=== PATIENT | female | born 1955 | race Caucasian/White ===

== ENCOUNTER 2017-06-12 20:00 | Emergency (ER) | payer MEDICARE ==
[2017-06-12] MEDS ORDERED: Lidocaine 1% MPF* 2 ML VIAL INJ ONE (20:04)
[2017-06-12] MEDS ORDERED: Acetaminophen TAB* 325 MG PO ONE (20:54)
[2017-06-12] MEDS ORDERED: Cephalexin CAP* 250 MG PO ONE (20:54)
[2017-06-12 21:00] VITALS: BP 168/92
--- NOTE | 2017-06-12 21:22 | UC ---
Kirby Vizcarra Nikita, scribed for Delma Anderson MD on 06/12/17 at 2009 . Laceration HPI - HPI Summary HPI Summary: This patient is a 61 year old F presenting to [facility] with a chief complaint of L index finger laceration with a kitchen knife since 1930. The CC is described as burning and oozing. The cut was clean and the knife was smooth. The patient rates the pain 8/10 in severity. No analgesia taken. 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 not immunocompromised Pt RHD Patients medication reviewed this visit. - History Of Current Complaint Stated Complaint: FINGER LACERATION Time Seen by Provider: 06/12/17 20:03 Hx Obtained From: Patient Laceration Location: Finger - L index Mechanism Of Injury: Sharp Trauma - kitchen knife Onset/Duration: Sudden Onset, Lasting Hours, Still Present Severity: Moderate Pain Intensity: 8 Pain Scale Used: 0-10 Numeric Aggravating Factors: Nothing - Allergies/Home Medications Allergies/Adverse Reactions: Allergies Allergy/AdvReac Type Severity Reaction Status Date / Time No Known Allergies Allergy Verified 06/12/17 20:13 PMH/Surg Hx/FS Hx/Imm Hx - Additional Past Medical History Additional PMH: osteoporosis Previously Healthy: Yes Cardiovascular History: Hypertension GI/ History: Gastroesophageal Reflux Cancer History: Other - Uterine CA (2014) Other Cancer History: uterine CA - Surgical History Surgical History: Yes Surgery Procedure, Year, and Place: TMJ, Hysterectomy, cataract right eye - Family History Known Family History: Positive: Hypertension, Other - liver cancer Negative: Diabetes - Social History Occupation: Retired Lives: With Family Alcohol Use: Rare Substance Use Type: None Smoking Status (MU): Never Smoked Tobacco - Immunization History Most Recent Influenza Vaccination: 2014 Most Recent Tetanus Shot: 4 years ago Most Recent Pneumonia Vaccination: never Review of Systems Constitutional: Negative Skin: Other - L index finger laceration All Other Systems Reviewed And Are Negative: Yes Physical Exam Triage Information Reviewed: Yes Appearance: Well-Appearing, No Pain Distress, Well-Nourished Vital Signs: Initial Vital Signs Temp 98.6 F 06/12/17 20:06 Pulse 70 06/12/17 20:06 Resp 18 06/12/17 20:06 BP 168/92 06/12/17 20:06 Pulse Ox 100 06/12/17 20:06 Vital Signs Reviewed: Yes Eyes: Negative: Discharge ENT: Positive: Hearing grossly normal Neck: Positive: Supple Respiratory: Positive: No respiratory distress, No accessory muscle use Cardiovascular: Positive: Other: - CBT < 2 sec del left index Musculoskeletal: Positive: Other: - + flex/ext DIP, PIP, MCP against resistance without difficulty Psychological Exam: Normal Skin: Positive: Other - Pt with V shaped laceration left index, dorsm, between MCP and PIP apex distal apex flap proximal Laceration Repair - Laceration Repair 1 Description: Linear - Time out performed at bed side Pt anethetized and draped in sterile fashion Wound evaluated through full ROM - no joint entry, no tendon/ ligament injury identified Pt tolerated well V shaped Laceration Size After Repair: Length (cm) - 2cm Modified For Repair: No Type Injection: Local Anesthesia Used: 1.0% Lido - 2 mL used Cleansing Completed Via Routine Prep: Yes Irrigation With Pressure Irrigation Device: Yes Closure Material: Sutures Closure Method: Single Layer - irrigated copiously with 250ml sterile saline Suture Of: Skin Suture Type: Nylon - 4.0 Laceration Course/Dx - Course/Dx Course Of Treatment: Pt with laceration of left index, non dominant hand - no joint involvement. CSM intact and full. sutured with good approx. pt tolerated well. splint. wound care. s/s infection. keflex. return precaution. suture removal. Pt tolerated well. comfortable with plan of care - Differential Dx - Laceration/Wound Provider Diagnoses: index laceration, left suture repair Discharge - Discharge Plan Condition: Stable Disposition: HOME Prescriptions: Cephalexin CAP* [Keflex 250 CAP*] 250 mg PO TID #21 cap Patient Education Materials: Finger Laceration (ED) Referrals: Xavier Fisher MD [Primary Care Provider] - Additional Instructions: - your stitches should come out in 9-10 days - you can return here, go to your Doctor or any urgent care center - okay to alternate ibuprofin (advil, motrin) and tylenol every 3hours as needed for pain -Keep your wound clean and dry - no soaking for 24 hours. Then, okay for wound to get wet - pat dry, don't rub -apply a thin layer of antibiotic ointment (neosporin, polysporin) 2-3 times a day and cover with a bandage - wear splint as much as possible for the first 1-2 days. - - keep your wound clean - monitor for signs of infection - reddness, red streaking, odor, green drainage - Take antibiotics as prescribed - Contact your doctor or return here with questions or concerns The documentation as recorded by the Kirby arredondo Nikita accurately reflects the service I personally performed and the decisions made by me, Delma Anderson MD.
== END 2017-06-12 21:10 | disposition home or self-care (01) ==
LOC: UCEAST 20:00
DX: S61.211A Laceration without foreign body of left index finger without damage to nail, initial encounter (principal); W26.0XXA Contact with knife, initial encounter; Y93.9 Activity, unspecified; Y92.9 Unspecified place or not applicable; I10 Essential (primary) hypertension; K21.9 Gastro-esophageal reflux disease without esophagitis; Z85.42 Personal history of malignant neoplasm of other parts of uterus
CPT/HCPCS: 12001; 99212; G0463

== ENCOUNTER 2017-07-30 18:33 | Emergency (ER) | payer MEDICARE ==
--- NOTE | 2017-07-30 21:32 | UC ---
Skin Complaint HPI - HPI Summary HPI Summary: PT REPORTS H/O VERY DRY SKIN IN THE [place] WHICH RESULTS IN DIFFUSE ITCHING FROM THE TOP OF HER HEAD TO HER TOES. PT HAS EXCORIATIONS DIFFUSELY. NO FEVER. HAS SEEN PCP AND DERM AND REPORTS UNDERLYING CONDITIONS HAVE BEEN EXCLUDED. WAS ADVISED BY DERM TO AVOID HOT SHOWERS, USE ICE PACKS AND MOISTURIZE WITH GOLD PARTIDA. SHE REPORTS PERSISTENT SYMPTOMS AND DISCOMFORT. IS TAKING BENADRYL WITH NO RELIEF. - History of Current Complaint Chief Complaint: UCSkin Time Seen by Provider: 07/30/17 20:43 Stated Complaint: ITCHINESS Hx Obtained From: Patient, Family/Sloop Captain - Onset/Duration: Lasting Weeks, Still Present Timing: Constant Onset Severity: Moderate Current Severity: Moderate Pain Intensity: 5 Pain Scale Used: 0-10 Numeric Location: Diffuse Character: Pruritus Aggravating Factor(s): Nothing Alleviating Factor(s): Nothing Associated Signs & Symptoms: Positive: Negative - Allergy/Home Medications Allergies/Adverse Reactions: Allergies Allergy/AdvReac Type Severity Reaction Status Date / Time No Known Allergies Allergy Verified 07/30/17 18:56 Review of Systems Constitutional: Negative Skin: Other - PRURITUS AND EXCORIATIONS Respiratory: Negative Cardiovascular: Negative Gastrointestinal: Negative All Other Systems Reviewed And Are Negative: Yes PMH/Surg Hx/FS Hx/Imm Hx Previously Healthy: Yes - Surgical History Surgical History: Yes Surgery Procedure, Year, and Place: TMJ, Hysterectomy, cataract right eye - Family History Known Family History: Positive: Hypertension, Other - liver cancer Negative: Diabetes - Social History Alcohol Use: Rare Substance Use Type: None Smoking Status (MU): Never Smoked Tobacco - Immunization History Most Recent Influenza Vaccination: 2014 Most Recent Tetanus Shot: 4 years ago Most Recent Pneumonia Vaccination: never Physical Exam Triage Information Reviewed: Yes Appearance: Well-Appearing, No Pain Distress, Well-Nourished Vital Signs: Initial Vital Signs Temp 98.6 F 07/30/17 18:50 Pulse 104 07/30/17 18:50 Resp 17 07/30/17 18:50 BP 155/100 07/30/17 18:50 Pulse Ox 100 07/30/17 18:50 Vital Signs Reviewed: Yes Eyes: Positive: Conjunctiva Clear ENT: Positive: Pharynx normal Neck: Positive: Supple Respiratory: Positive: No respiratory distress, No accessory muscle use Cardiovascular: Positive: Pulses Normal Abdomen Description: Positive: Soft Musculoskeletal: Positive: No Edema Neurological: Positive: Alert Psychological: Positive: Age Appropriate Behavior Skin: Positive: Other - EXCORIATED SKIN DIFFUSELY - SCALP, TRUNK, EXTREMITIES Course/Dx - Diagnoses Provider Diagnoses: GENERALIZED PRURITUS DUE TO DRY SKIN Discharge - Discharge Plan Condition: Stable Disposition: HOME Prescriptions: predniSONE TAB* [Deltasone TAB*] 50 mg PO DAILY #5 tab Triamcinolone 0.1% CREAM(NF) [Kenalog Cream 0.1%(NF)] 1 applic TOPICAL TID PRN # 1 tube PRN Reason: Itching Patient Education Materials: Itchy Skin (ED) Referrals: Xavier Fisher MD [Primary Care Provider] - If Needed Additional Instructions: CONTINUE MOISTURIZING DAILY WITH FRAGRANCE FREE, HYPOALLERGENIC EMOLLIENT AVOID HEAT AND HOT WATER DO NOT SCRATCH KEEP COOL, CLEAN AND DRY PREDNISONE AND TOPICAL STEROID MAY PROVIDE SOME RELIEF. CONSIDER A HUMIDIFIER IN YOUR ROOM.
[2017-07-30 21:37] VITALS: BP 146/88
== END 2017-07-30 21:29 | disposition home or self-care (01) ==
LOC: UCEAST 18:33
DX: L29.9 Pruritus, unspecified (principal); L85.3 Xerosis cutis
CPT/HCPCS: 99211; G0463

== ENCOUNTER 2018-12-11 14:30 | Emergency (ER) | payer MEDICARE ==
--- OUTSIDE RECORDS SUMMARY | 2018-12-11 14:43 | XMS REPORT | Continuity of Care Document ---
:1955 External Reference #:[id number] Author Name Johnmiky Trena Care Team Providers Name Role Phone Kendra Almanzar M.D. Primary Care Physician Unavailable Payers Date Identification Numbers Payment Provider Subscriber Policy Number: [id number] Medicare Blue Ppo Gila Dots[employer] Group Number: [id number] [address] [address] PayID: [id number] JULIO [place] [address] Expires: 2000 Policy Number: [id number] Medicare Gila Dotson PayID: [id number] [address] [place] [address] Advance Directives Type Date Description Status Comment Other Directive 02/27/2017 Health Care Proxy Current and Verified Problems Active Problems Provider Date Essential hypertension Scott Perez M.D. Onset: 08/26/2015 Atypical depressive disorder Xavier Fisher M.D. Onset: 03/10/2016 Gastroesophageal reflux disease Xavier Fisher M.D. Onset: 03/10/2016 Neck pain Xavier Fisher M.D. Onset: 09/26/2016 Mixed hyperlipidemia Xavier Fisher M.D. Onset: 02/14/2017 Chronic pain Ferny Reinoso M.D.,FACP Onset: 12/05/2017 Brachial neuritis Rogelio Lacey M.D. Onset: 03/28/2018 Sprain of ankle Ad Beltran MD Onset: 04/17/2018 Resolved Problems Headache Scott Perez M.D. Onset: 08/12/2015 Resolved: 05/29/2017 Hyperlipidemia Scott Perez M.D. Onset: 08/26/2015 Resolved: 05/29/2017 Tension-type headache Xavier Fisher M.D. Onset: 03/10/2016 Resolved: 05/29/2017 Low back pain Xavier Fisher M.D. 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 ETOH Use Occasionally consumes alcohol Tobacco Use Start: Unknown Patient has never smoked Recreational Drug Use Denies Drug Use Smoking Status Reviewed: 12/10/18 Patient has never smoked Exercise Type/Frequency Jogs 3 times a week Allergies, Adverse Reactions, Alerts Description No Known Drug Allergies Medications Active Medications SIG Qnty Indications Ordering Provider Date Amlodipine Besylate 1 by mouth every 30tabs I10 Rosalinda Albert, 10/24/2018 day [employer] 5mg Tablets Oxycodone-Acetaminop take one tablet 60tabs M54.5 Margarita Nguyen MD 2017 hen by mouth every 5-325mg Tablets 12 hours as needed for pain Venlafaxine HCL ER 3 caps PO daily 30caps F33.0 Xavier Fisher, 2017 for total of 225 M.D. 75mg Caps ER 24HR mg Lidocaine apply to painful 35.440gm M54.2 Missy Triplett, 10/31/2016 5% Ointment areas 3 times a M.D. day as needed. Metoprolol Succinate take 1 tablet by 30tabs I10 Xavier Fisher, 2016 ER mouth every day M.D. 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 06/06/2018 Tablets as needed Amlodipine Besylate 1 by mouth 30tabs I10 Xavier Fisher, 01/12/2017 - every day M.D. 05/29/2017 5mg Tablets Percocet 1 tab every 8h 90tabs M54.2 Xavier Yolanda, 11/08/2016 - 5-325mg as needed M.D. 02/19/2018 Tablets Tizanidine HCL 1 by mouth at 30caps M54.2 Xavier Fisher, 11/03/2016 - 4mg bedtime M.D. 12/20/2016 Capsules Percocet 1 tab every 8h 90tabs M54.2 Ceibamarleny Fisher, 10/31/2016 - 5-325mg as needed M.D. 11/01/2016 Tablets Naproxen Take 1 Tablet 60tabs M54.2 Xaviermarleny Fisher, 10/31/2016 - 375mg By Mouth Two M.D. 10/24/2018 Tablets Times Daily With Food prn Oxycodone HCL 1 by mouth 30tabs M54.5 Xavier Fisher, 09/26/2016 - 5mg every 12 hours M.D. 10/31/2016 Tablets as needed 30 day supply Naltrexone HCL 1 po qd 30tabs Padma Ortiz 09/23/2016 - 50mg SHANNON Allred 11/03/2016 Tablets Lidocaine apply patch up 30units M54.2 Xaviermarleny Fisher, 09/14/2016 - 5% to 12 hours M.D. 10/31/2016 Patches once a day. Meloxicam 1 tab by mouth 45tabs M54.2 Wade Sanders NP 09/14/2016 - 7.5mg every 12 hours 10/31/2016 Tablets x14 days, then as needed for pain Robaxin 1 tab po every 45tabs M54.2 Wade Sanders NP 09/14/2016 - 500mg 6 hours prn up 09/28/2016 Tablets to tid Ibuprofen 1 tab by mouth 90tabs G89.29 Brennon Steiner, 09/06/2016 - 600mg three times a M.D. 09/14/2016 Tablets day M54.2 Acetaminophen Extra 2 tabs 3 times 120tabs G89.29 Brennon Steiner, 2016 - Strength daily as needed M.D. 09/14/2016 500mg Tablets for pain Lidocaine apply to back 90units G89.29 Brennon Steiner, 09/06/2016 - 5% Patches once daily. M.D. 09/14/2016 remove after 12 hours Lidocaine apply patch up 30units Brennon Steiner, 09/06/2016 - 5% Patches to 12 hours once M.D. 09/06/2016 a day. Aspirin Adult Low Dose 1 by mouth every 30tabs I10 Other Ordering 2015 - day Provider 10/27/2018 81mg Tablets Venlafaxine HCL ER 1 tab PO daily 30Regina Lux 03/02/2016 - 150mg MD Arabella 01/12/2017 Caps ER 24HR Oxycodone-Acetaminophe take 1 to 2 60tabs Brennon Steiner, 03/02/2016 - n tablets by mouth M.D. 09/06/2016 5-325mg Tablets every 6 to 8 hours as needed pain Fioricet Take 1 Capsule 30caps G44.201 Wade Sanders, 12/09/2015 - 50-300-40mg By Mouth Every 4 [employer] 09/06/2016 Capsules Hours as Needed For Headaches Maximum Daily Dose Of 6 Per Day 2 Days Per Week Celexa 1 tablet by 30tabs F32.8 Scott Perez, 10/13/2015 - 20mg Tablets mouth every day M.D. 12/07/2015 Metoprolol Succinate take 1 tablet by 30tabs I10 Xavier 08/12/2015 - ER mouth every day Vicente Fisher 10/31/2016 50mg Tablets ER 24HR Naproxen Take 1 Tablet By 30tabs G44.201 Ferny York 08/12/2015 - 375mg Tablets Mouth Two Times Vicente Reinoso,FACArben 03/10/2016 Daily With Food Cyclobenzaprine HCL 1 tablet by 45tabs G44.201 Brennon Steiner, 08/12/2015 - 5mg mouth three M.D. 09/06/2016 Tablets times a day as needed Bupropion HCL ER (SR) 1 by mouth twice Scott Perez, 08/12/2015 - a day M.D. 03/04/2016 150mg Tablets ER 12HR Oxycodone HCL 1 by mouth every Unknown - 10mg 6 hours as 08/13/2015 Tablets needed pain Hydromorphone HCL Unknown - 2mg 08/13/2015 Tablets Oxycodone-Acetaminophe 1-2 by mouth Unknown - n every 4-6 hours 03/04/2016 5-325mg Tablets as needed for pain. Bupropion HCL take 1 tablet by Unknown - 100mg mouth one time 01/19/2017 Tablets daily Trazadone 1 po q hs Unknown - 06/06/2018 Naltrexone HCL 1 by mouth every Unknown - 50mg day 06/06/2018 Tablets Immunizations CPT Code Status Date Vaccine Lot # [id number] Given 06/06/2018 Influenza Virus Vaccine, Quadrivalent, Split, [id number] Preservative Free [id number] Given 08/03/2017 Influenza Virus Vaccine, Quadrivalent, Split, [id number] Preservative Free Vital Signs Date Vital Result Comment 12/10/2018 12:07pm Height 64 inches 5'4" Weight 138.00 lb Heart Rate 72 /min BP Systolic Sitting 125 mmHg BP Diastolic Sitting 84 mmHg Body Temperature 98.1 F O2 % BldC Oximetry 99 % BMI (Body Mass Index) 23.7 kg/m2 11/07/2018 11:18am Height 64 inches 5'4" Weight 136.38 lb Heart Rate 90 /min BP Systolic 143 mmHg recheck right arm 145/85 BP Diastolic 84 mmHg recheck right arm 145/85 Body Temperature 97.2 F O2 % BldC Oximetry 97 % BMI (Body Mass Index) 23.4 kg/m2 10/24/2018 1:02pm Height 64 inches 5'4" Weight 136.38 lb Heart Rate 74 /min BP Systolic 154 mmHg BP Diastolic 100 mmHg Body Temperature 97.9 F O2 % BldC Oximetry 97 % BMI (Body Mass Index) 23.4 kg/m2 08/01/2018 11:51am Height 64 inches 5'4" Weight 138.00 lb Heart Rate 70 /min BP Systolic Sitting 126 mmHg BP Diastolic Sitting 80 mmHg Body Temperature 98.1 F O2 % BldC Oximetry 98 % BMI (Body Mass Index) 23.7 kg/m2 06/06/2018 3:14pm Height 64 inches 5'4" Weight 139.00 lb Heart Rate 82 /min BP Systolic Sitting 146 mmHg BP Diastolic Sitting 89 mmHg Body Temperature 97.3 F O2 % BldC Oximetry 99 % BMI (Body Mass Index) 23.9 kg/m2 05/14/2018 1:43pm Height 64 inches 5'4" Heart Rate 72 /min BP Systolic Sitting 160 mmHg regular adult cuff left arm BP Diastolic Sitting 108 mmHg regular adult cuff left arm Respiratory Rate 24 /min Body Temperature 97.3 F 04/17/2018 2:15pm Height 64 inches 5'4" Weight 130.00 lb Heart Rate 72 /min Respiratory Rate 12 /min Body Temperature 98.7 F Pain Level 7 BMI (Body Mass Index) 22.3 kg/m2 03/28/2018 2:34pm Height 64 inches 5'4" Weight 136.00 lb BP Systolic 130 mmHg BP Diastolic 82 mmHg Respiratory Rate 20 /min Body Temperature 97.3 F Pain Level 7 BMI (Body Mass Index) 23.3 kg/m2 03/13/2018 4:22pm Weight 136.00 lb Heart Rate 87 /min BP Systolic Sitting 128 mmHg BP Diastolic Sitting 80 mmHg Body Temperature 98.1 F O2 % BldC Oximetry 99 % 10/17/2017 3:03pm Weight 131.00 lb Heart Rate 95 /min BP Systolic 130 mmHg BP Diastolic 80 mmHg Body Temperature 97.7 F O2 % BldC Oximetry 97 % 09/18/2017 1:29pm Height 64 inches 5'4" Weight 134.50 lb Heart Rate 78 /min BP Systolic 132 mmHg BP Diastolic 80 mmHg Body Temperature 99.5 F O2 % BldC Oximetry 95 % BMI (Body Mass Index) 23.1 kg/m2 05/29/2017 3:36pm Height 64 inches 5'4" Weight 134.00 lb Heart Rate 71 /min BP Systolic 124 mmHg BP Diastolic 66 mmHg Body Temperature 98.2 F O2 % BldC Oximetry 96 % BMI (Body Mass Index) 23.0 kg/m2 02/14/2017 1:50pm Height 64 inches 5'4" Weight 140.50 lb Heart Rate 104 /min BP Systolic 118 mmHg BP Diastolic 68 mmHg Body Temperature 98.1 F O2 % BldC Oximetry 99 % BMI (Body Mass Index) 24.1 kg/m2 01/19/2017 1:50pm BP Systolic Sitting 112 mmHg BP Diastolic Sitting 66 mmHg 01/12/2017 10:50am Weight 138.12 lb Heart Rate 59 /min BP Systolic 178 mmHg BP Diastolic 90 mmHg Body Temperature 97.4 F O2 % BldC Oximetry 99 % 12/20/2016 3:07pm Height 64 inches 5'4" Weight 140.50 lb Heart Rate 81 /min BP Systolic 134 mmHg BP Diastolic 78 mmHg Body Temperature 98.5 F O2 % BldC Oximetry 93 % BMI (Body Mass Index) 24.1 kg/m2 11/08/2016 2:15pm Weight 137.12 lb Heart Rate 67 /min BP Systolic Sitting 150 mmHg BP Diastolic Sitting 88 mmHg Body Temperature 97.3 F O2 % BldC Oximetry 98 % 11/03/2016 4:52pm Weight 138.00 lb Heart Rate 68 /min BP Systolic Sitting 160 mmHg BP Diastolic Sitting 90 mmHg Body Temperature 98.5 F O2 % BldC Oximetry 98 % 10/31/2016 2:01pm Weight 135.12 lb Heart Rate 78 /min BP Systolic Sitting 172 mmHg BP Diastolic Sitting 96 mmHg Body Temperature 97.6 F O2 % BldC Oximetry 97 % 09/26/2016 2:40pm Weight 135.00 lb Heart Rate 80 /min BP Systolic Sitting 134 mmHg BP Diastolic Sitting 92 mmHg Body Temperature 98.6 F O2 % BldC Oximetry 98 % 09/14/2016 2:43pm Weight 136.25 lb Heart Rate 64 /min BP Systolic Sitting 136 mmHg BP Diastolic Sitting 74 mmHg Body Temperature 97.9 F O2 % BldC Oximetry 97 % 09/06/2016 1:24pm Height 64 inches 5'4" Weight 137.25 lb Heart Rate 74 /min BP Systolic 140 mmHg BP Diastolic 84 mmHg Body Temperature 98.7 F O2 % BldC Oximetry 97 % BMI (Body Mass Index) 23.6 kg/m2 07/29/2016 10:54am Height 64 inches 5'4" Weight 140.00 lb Pain Level 3 BMI (Body Mass Index) 24.0 kg/m2 07/12/2016 12:49pm Height 64 inches 5'4" Weight 140.00 lb BP Systolic Sitting 124 mmHg BP Diastolic Sitting 76 mmHg Pain Level 6 BMI (Body Mass Index) 24.0 kg/m2 06/28/2016 12:34pm Weight 139.00 lb Heart Rate 67 /min BP Systolic Sitting 164 mmHg BP Diastolic Sitting 96 mmHg Body Temperature 97.9 F O2 % BldC Oximetry 98 % 03/10/2016 8:57am Height 64.5 inches 5'4.50" Weight 132.25 lb Heart Rate 72 /min BP Systolic 140 mmHg BP Diastolic 80 mmHg Body Temperature 98.5 F O2 % BldC Oximetry 98 % BMI (Body Mass Index) 22.3 kg/m2 12/15/2015 1:28pm Height 64.5 inches 5'4.50" Weight 141.00 lb Heart Rate 68 /min BP Systolic Sitting 128 mmHg BP Diastolic Sitting 80 mmHg Body Temperature 98.6 F O2 % BldC Oximetry 95 % BMI (Body Mass Index) 23.8 kg/m2 12/07/2015 1:38pm Height 64.5 inches 5'4.50" Weight 143.00 lb Heart Rate 110 /min BP Systolic Sitting 120 mmHg BP Diastolic Sitting 78 mmHg Pain Level 9 9/10 pain level O2 % BldC Oximetry 96 % BMI (Body Mass Index) 24.2 kg/m2 10/13/2015 1:49pm Height 64.5 inches 5'4.50" Weight 137.00 lb Heart Rate 85 /min BP Systolic Sitting 126 mmHg home unit: 134/82 BP Diastolic Sitting 70 mmHg home unit: 134/82 Body Temperature 98.1 F O2 % BldC Oximetry 98 % BMI (Body Mass Index) 23.2 kg/m2 08/26/2015 2:23pm Height 64.5 inches 5'4.50" Weight 140.00 lb Heart Rate 76 /min BP Systolic Sitting 150 mmHg BP Diastolic Sitting 80 mmHg Body Temperature 97.6 F O2 % BldC Oximetry 97 % BMI (Body Mass Index) 23.7 kg/m2 08/12/2015 2:44pm Height 64.5 inches 5'4.50" Weight 139.25 lb Heart Rate 84 /min BP Systolic Sitting 150 mmHg BP Diastolic Sitting 78 mmHg Body Temperature 98.6 F O2 % BldC Oximetry 95 % BMI (Body Mass Index) 23.5 kg/m2 Results Test Date Facility Test Result H/L Range Note Lipid Profile 10/19/2018 [facility] [place] Triglycerides 134 mg/dL 1 (Trig/Chol/HDL) [address] [place] [address] [phone] Cholesterol 318 mg/dL 2 HDL Cholesterol 85.5 mg/dL 3 LDL Cholesterol 206 mg/dL 4 Comp Metabolic Panel 10/19/2018 [facility] [place] Sodium 138 mmol/L N 135-[address] [place], [place] [id number] [phone] Potassium 4.8 mmol/L N 3.5-5.0 Chloride 102 mmol/L N 101-111 Co2 Carbon Dioxide 28 mmol/L N 22-32 Anion Gap 8 mmol/L N 2-11 Glucose 98 mg/dL N 70-100 Blood Urea Nitrogen 20 mg/dL N 6-24 Creatinine 0.88 mg/dL N 0.51-0.95 BUN/Creatinine Ratio 22.7 High 8-20 Calcium 9.9 mg/dL N 8.6-10.3 Total Protein 7.4 g/dL N 6.4-8.9 Albumin 4.8 g/dL N 3.2-5.2 Globulin 2.6 g/dL N 2-4 Albumin/Globulin Ratio 1.8 N 1-3 Total Bilirubin 0.50 mg/dL N 0.2-1.0 Alkaline Phosphatase 88 U/L N 34-104 Alt 75 U/L High 7-52 Ast 48 U/L High 13-39 Egfr Non- 64.5 >60 Egfr 78.0 >60 5 Drug Abuse 12/07/2017 [facility] [place] Urine Presumptive Posi Abnormal [address] Amphetamine <SEE NOTE> ng/[place] [address] [phone] Urine Barbiturates Negative ng/mL 7 Urine Benzodiazepines Negative ng/mL 8 Urine Cocaine Negative ng/mL 9 Urine Phencyclidine Negative ng/mL Cutoff: 25 Urine Tetrahydrocannabinol Negative ng/mL Cutoff: 50 10 Creatinine, Urine 348.5 mg/dL Specific [place] 1.020 pH 5.7 Oxidants Negative 11 Adulterants Comment Normal Codeine, Ur Not Detected ng/mL Cutoff: 25 12 Zpmvuhm-7-pvqn-glucuronide, Ur Not Detected ng/mL 13 Morphine, Ur Not Detected ng/mL Cutoff: 25 14 Djtxnwqp-3-urcs-glucuronide, U Not Detected ng/mL 15 6-monoacetylmorphine, Ur Not Detected ng/mL Cutoff: 25 16 Hydrocodone, Ur Not Detected ng/mL Cutoff: 25 17 Norhydrocodone, Ur Not Detected ng/mL Cutoff: 25 18 Dihydrocodeine, Ur Not Detected ng/mL Cutoff: 25 19 Hydromorphone, Ur Not Detected ng/mL Cutoff: 25 20 Ienqrslugwcpk3zhwioingorclclu Not Detected ng/mL 21 Oxycodone, Ur Present ng/mL Abnormal Cutoff: 25 22 Noroxycodone, Ur Present ng/mL Abnormal Cutoff: 25 23 Oxymorphone, Ur Not Detected ng/mL Cutoff: 25 24 Yxizfvqfnsx-2-ysoh-glucuronide Present ng/mL Abnormal 25 Noroxymorphone, Ur Present ng/mL Abnormal Cutoff: 25 26 Fentanyl, Ur See Comment ng/mL Cutoff: 2 27 Norfentanyl, Ur Not Detected ng/mL Cutoff: 2 28 Meperidine, Ur Not Detected ng/mL Cutoff: 25 29 Normeperidine, Ur Not Detected ng/mL Cutoff: 25 30 Naloxone, Ur Not Detected ng/mL Cutoff: 25 31 Tgbzhgqt-5-xtkt-glucuronide, U Not Detected ng/mL 32 Methadone, Ur Not Detected ng/mL Cutoff: 25 33 Eddp, Ur Not Detected ng/mL Cutoff: 25 34 Propoxyphene, Ur Not Detected ng/mL Cutoff: 25 35 Norpropoxyphene, Ur Not Detected ng/mL Cutoff: 25 36 Tramadol, Ur Not Detected ng/mL Cutoff: 25 37 O-desmethyltramadol, Ur Not Detected ng/mL Cutoff: 25 38 Tapentadol, Ur Not Detected ng/mL Cutoff: 25 39 N-desmethyltapentadol, Ur Not Detected ng/mL Cutoff: 50 40 Tqxezdhlnm-yaul-mggehktzuvo, U Not Detected ng/mL 41 Buprenorphine, Ur Not Detected ng/mL Cutoff: 5 42 Norbuprenorphine, Ur See Comment ng/mL Cutoff: 5 43 Norbuprenorphine glucuronide Not Detected ng/mL Cutoff: 20 44 Opioid Interpretation See Comment 45 Urine 12/07/2017 [facility] [place] Urine Negative Cutoff: [address] Amphetamine by ng/[place] [address] GC/MS [phone] Urine Methamphetamine by GC/MS Negative ng/mL Cutoff: 25 Phentermine-by GC/MS Negative ng/mL Cutoff: 25 Pseudoephedrine/Ephedr GC/MS Negative ng/mL Cutoff: 25 Mda(Ecstacy metabolite) GC/MS Negative ng/mL Cutoff: 25 Mdma(Ecstacy)-by GC/MS Negative ng/mL Cutoff: 25 Urine Amphetamines Interp Negative. 46 Lipid Profile 12/04/2017 [facility] [place] Triglycerides 353 mg/dL 47, 48 (Trig/Chol/HDL) [address] [place], [place] [id number] [phone] Cholesterol 311 mg/dL 49 HDL Cholesterol 76.9 mg/dL 50 LDL Cholesterol 164 mg/dL 51 Lipid Profile 06/01/2017 [facility] [place] Triglycerides 289 mg/dL 52 (Trig/Chol/HDL) [address] [place], [place] [id number] [phone] Cholesterol 304 mg/dL 53 HDL Cholesterol 73.6 mg/dL 54 LDL Cholesterol 173 mg/dL 55 Lipid Profile 02/13/2017 [facility] [place] Triglycerides 124 mg/dL N 56 (Trig/Chol/HDL) [address] [place] [address] [phone] Cholesterol 268 mg/dL N 57 HDL Cholesterol 59.4 mg/dL N 58 LDL Cholesterol 184 mg/dL N 59 Basic Metabolic Panel 02/13/2017 [facility] [place] Sodium 138 mmol/L N 133-145 [address] [place] [address] [phone] Potassium 4.4 mmol/L N 3.5-5.0 Chloride 103 mmol/L N 101-111 Co2 Carbon Dioxide 29 mmol/L N 22-32 Anion Gap 6 mmol/L N 2-11 Glucose 100 mg/dL N 70-100 Blood Urea Nitrogen 14 mg/dL N 6-24 Creatinine 0.80 mg/dL N 0.51-0.95 BUN/Creatinine Ratio 17.5 N 8-20 Calcium 9.8 mg/dL N 8.6-10.3 Egfr Non- 72.4 N >60 Egfr 93.2 N >60 60 CBC Auto Diff 03/31/2016 [facility] [place] White Blood 7.3 10^3/uL N 3.5-10.[address] [place] [address] [phone] Red Blood Count 4.15 10^6/uL N 4.0-5.4 Hemoglobin 13.3 g/dL N 12.0-16.0 Hematocrit 40 % N 35-47 Mean Corpuscular Volume 97 fL N 80-97 Mean Corpuscular Hemoglobin 32 pg High 27-31 Mean Corpuscular HGB Conc 33 g/dL N 31-36 Red Cell Distribution Width 13 % N 10.5-15 Platelet Count 321 10^3/uL N 150-450 Mean Platelet Volume 8 um3 N 7.4-10.4 Abs Neutrophils 4.9 10^3/uL N 1.5-7.7 Abs Lymphocytes 1.9 10^3/uL N 1.0-4.8 Abs Monocytes 0.4 10^3/uL N 0-0.8 Abs Eosinophils 0 10^3/uL N 0-0.6 Abs Basophils 0.1 10^3/uL N 0-0.2 Abs Nucleated RBC 0.01 10^3/uL N Granulocyte % 67.1 % N 38-83 Lymphocyte % 26.7 % N 25-47 Monocyte % 4.8 % N 1-9 Eosinophil % 0.1 % N 0-6 Basophil % 1.3 % N 0-2 Nucleated Red Blood Cells % 0.2 N Comp Metabolic Panel 03/31/2016 [facility] [place] Sodium 136 mmol/L N 133-[address] [place] [address] [phone] Potassium 4.0 mmol/L N 3.5-5.0 Chloride 101 mmol/L N 101-111 Co2 Carbon Dioxide 26 mmol/L N 22-32 Anion Gap 9 mmol/L N 2-11 Glucose 106 mg/dL High 70-100 Blood Urea Nitrogen 15 mg/dL N 6-24 Creatinine 0.93 mg/dL N 0.51-0.95 BUN/Creatinine Ratio 16.1 N 8-20 Calcium 9.9 mg/dL N 8.6-10.3 Total Protein 7.9 g/dL N 6.4-8.9 Albumin 4.9 g/dL N 3.2-5.2 Globulin 3.0 g/dL N 2-4 Albumin/Globulin Ratio 1.6 N 1-3 Total Bilirubin 0.40 mg/dL N 0.2-1.0 Alkaline Phosphatase 94 U/L N 34-104 Alt 37 U/L N 7-52 Ast 29 U/L N 13-39 Egfr Non- 61.1 N >60 Egfr 78.6 N >60 61 Laboratory test finding 03/31/2016 [facility] [place] LDH 214 U/L N 140-[address] [place] [address] [phone] TSH (Thyroid Stim Horm) 3.01 mcIU/mL N 0.34-5.60 Ferritin 62.9 ng/mL N 11-307 Erythropoietin 8.3 mIU/mL N 2.6 - 18.5 62 Haptoglobin 232 mg/dL Abnormal 30 - 200 63 Comp Metabolic Panel 02/27/2016 [facility] [place] Sodium 137 mmol/L N 133-[address] [place] [address] [phone] Potassium 4.3 mmol/L N 3.5-5.0 Chloride 102 mmol/L N 101-111 Co2 Carbon Dioxide 25 mmol/L N 22-32 Anion Gap 10 mmol/L N 2-11 Glucose 103 mg/dL High 70-100 Blood Urea Nitrogen 20 mg/dL N 6-24 Creatinine 0.74 mg/dL N 0.51-0.95 BUN/Creatinine Ratio 27.0 High 8-20 Calcium 9.5 mg/dL N 8.6-10.3 Total Protein 7.2 g/dL N 6.4-8.9 Albumin 4.2 g/dL N 3.2-5.2 Globulin 3.0 g/dL N 2-4 Albumin/Globulin Ratio 1.4 N 1-3 Total Bilirubin 0.80 mg/dL N 0.2-1.0 Alkaline Phosphatase 88 U/L N 34-104 Alt 41 U/L N 7-52 Ast 26 U/L N 13-39 Egfr Non- 79.5 N >60 Egfr 102.3 N >60 65 Laboratory test 02/27/2016 [facility] [place] Creatine 49 U/L N 10- [address] Kinase(CK) [place] [address] [phone] Troponin-I (TnI) 0.00 ng/mL N <0.03 66 CKMB 02/27/2016 [facility] [place] CKMB ng/mL 1.5 ng/mL N 0.6-6.[address] [place] [address] [phone] Inr/Protime 02/27/2016 [facility] [place] Inr 1.01 N 0.89-1.[address] [place] [address] [phone] Laboratory test 02/27/2016 [facility] [place] Partial 26.7 seconds N 26.0-36.[address] [place] [address] PTT [phone] Lactic Acid 2.1 mmol/L High 0.5-2.0 67 CBC Auto 02/27/2016 [facility] [place] White Blood 11.1 10^3/uL High 3.5-10.[address] [place] [address] [phone] Red Blood Count 3.71 10^6/uL Low 4.0-5.4 Hemoglobin 12.0 g/dL N 12.0-16.0 Hematocrit 37 % N 35-47 Mean Corpuscular Volume 99 fL High 80-97 Mean Corpuscular Hemoglobin 32 pg High 27-31 Mean Corpuscular HGB Conc 33 g/dL N 31-36 Red Cell Distribution Width 13 % N 10.5-15 Platelet Count 210 10^3/uL N 150-450 Mean Platelet Volume 8 um3 N 7.4-10.4 Abs Neutrophils 9.6 10^3/uL High 1.5-7.7 Abs Lymphocytes 1.1 10^3/uL N 1.0-4.8 Abs Monocytes 0.4 10^3/uL N 0-0.8 Abs Eosinophils 0 10^3/uL N 0-0.6 Abs Basophils 0 10^3/uL N 0-0.2 Abs Nucleated RBC 0.01 10^3/uL N Granulocyte % 86.5 % High 38-83 Lymphocyte % 9.5 % Low 25-47 Monocyte % 3.8 % N 1-9 Eosinophil % 0 % N 0-6 Basophil % 0.2 % N 0-2 Nucleated Red Blood Cells % 0.1 N Type & Screen 02/27/2016 [facility] [place] Patient Blood Type AB Positive N [address] [place] [address] [phone] Antibody Screen NEGATIVE N Stool For 02/27/2016 [facility] [place] Stool Occult SEE RESULT [address] [place] [address] [phone] CBC Auto Diff 12/07/2015 [facility] [place] White Blood 3.6 10^3/uL N 3.5-10. [address] Count 8 [place] [address] [phone] Red Blood Count 3.47 10^6/uL Low 4.0-5.4 Hemoglobin 11.5 g/dL Low 12.0-16.0 Hematocrit 36 % N 35-47 Mean Corpuscular Volume 102 fL High 80-97 Mean Corpuscular Hemoglobin 33 pg High 27-31 Mean Corpuscular HGB Conc 32 g/dL N 31-36 Red Cell Distribution Width 14 % N 10.5-15 Platelet Count 278 10^3/uL N 150-450 Mean Platelet Volume 8 um3 N 7.4-10.4 Abs Neutrophils 2.2 10^3/uL N 1.5-7.7 Abs Lymphocytes 1.0 10^3/uL N 1.0-4.8 Abs Monocytes 0.2 10^3/uL N 0-0.8 Abs Eosinophils 0.1 10^3/uL N 0-0.6 Abs Basophils 0 10^3/uL N 0-0.2 Abs Nucleated RBC 0 10^3/uL N Granulocyte % 62.2 % N 38-83 Lymphocyte % 29.3 % N 25-47 Monocyte % 5.6 % N 1-9 Eosinophil % 2.1 % N 0-6 Basophil % 0.8 % N 0-2 Nucleated Red Blood Cells % 0.1 N Iron & Iron Binding 12/07/2015 [facility] [place] Iron 96 g/dL N 50- 212 Capacity [address] [place], [place] [id number] [phone] Unsaturated Iron Binding 222 g/dL N Total Iron Binding Capacity 318 g/dL N 250-450 % Iron Saturation 30 % N 15-55 Retic Count 12/07/2015 [facility] [place] Retic Count 1.9 % High 0.5- 1.5 [address] [place], [place] [id number] [phone] Corrected Retic Count 1.5 % N 0.5-1.5 Maturation Factor Retic 1.5 N Retic Index 1.00 N Mean Retic Volume 121.4 N Immature Retic Fraction 0.56 N RBC Retic Count 3.47 10^6/uL Low 4.6-6.2 Hematocrit for Retic CNT 36 % N 35-47 Vitamin B12 And 12/07/2015 [facility] [place] Vitamin B12 959 pg/mL High 180-914 69 Folate Serum [address] [place], [place] [id number] [phone] Folic Acid (Folate) > 20.00 ng/mL N >3.99 Hepatitis 10/09/2015 [facility] [place] Hepatitis B Nonreactive N Nonreactive Acute Panel [address] [place] [address] Antigen [phone] Hepatitis B Core IgM Nonreactive N Nonreactive Hepatitis A AB IgM Nonreactive N Nonreactive Hepatitis C Antibody Nonreactive N Nonreactive Comp Metabolic Panel 10/09/2015 [facility] [place] Sodium 139 mmol/L N 133-[address] [place] [address] [phone] Potassium 4.8 mmol/L N 3.5-5.0 Chloride 104 mmol/L N 101-111 Co2 Carbon Dioxide 27 mmol/L N 22-32 Anion Gap 8 mmol/L N 2-11 Glucose 77 mg/dL N 70-100 Blood Urea Nitrogen 17 mg/dL N 6-24 Creatinine 0.71 mg/dL N 0.51-0.95 BUN/Creatinine Ratio 23.9 High 8-20 Calcium 9.7 mg/dL N 8.6-10.3 Total Protein 7.0 g/dL N 6.4-8.9 Albumin 4.7 g/dL N 3.2-5.2 Globulin 2.3 g/dL N 2-4 Albumin/Globulin Ratio 2.0 N 1-3 Total Bilirubin 0.40 mg/dL N 0.2-1.0 Alkaline Phosphatase 99 U/L N 34-104 Alt 86 U/L High 7-52 Ast 55 U/L High 13-39 Egfr Non- 83.4 N >60 Egfr 107.3 N >[address] [facility] [place] TSH (Thyroid 2.08 ?IU/mL N 0.34-5.60 [address] Stim [place]) [place] [address] [phone] Urine Culture And Sensitivities SEE RESULT BELOW [address] [facility] [place] Triglycerides 217 mg/dL N 73 (Trig/Chol/HDL) [address] [place] [address] [phone] Cholesterol 272 mg/dL N 74 HDL Cholesterol 70.1 mg/dL N 75 LDL Cholesterol 159 mg/dL N 76 CBC Auto Diff 2015 [facility] [place] White Blood 4.7 10^3/uL N 3.5-10.[address] [place] [address] [phone] Red Blood Count 3.93 10^6/uL Low 4.0-5.4 Hemoglobin 12.6 g/dL N 12.0-16.0 Hematocrit 39 % N 35-47 Mean Corpuscular Volume 99 fL High 80-97 Mean Corpuscular Hemoglobin 32 pg High 27-31 Mean Corpuscular HGB Conc 33 g/dL N 31-36 Red Cell Distribution Width 13 % N 10.5-15 Platelet Count 297 10^3/uL N 150-450 Mean Platelet Volume 8 um3 N 7.4-10.4 Abs Neutrophils 3.2 10^3/uL N 1.5-7.7 Abs Lymphocytes 1.1 10^3/uL N 1.0-4.8 Abs Monocytes 0.3 10^3/uL N 0-0.8 Abs Eosinophils 0.1 10^3/uL N 0-0.6 Abs Basophils 0 10^3/uL N 0-0.2 Abs Nucleated RBC 0 10^3/uL N Granulocyte % 67.7 % N 38-83 Lymphocyte % 22.6 % Low 25-47 Monocyte % 6.4 % N 1-9 Eosinophil % 2.5 % N 0-6 Basophil % 0.8 % N 0-2 Nucleated Red Blood Cells % 0 N Urinalysis Profile 2015 [facility] [place] Urine Color Yellow N [address] [place] [address] [phone] Urine Appearance Clear N Urine Specific Jewett 1.026 N 1.010-1.030 Urine pH 5.0 N 5-9 Urine Urobilinogen Negative N Negative Urine Ketones Negative N Negative Urine Protein Negative N Negative Urine Leukocytes Trace Abnormal Negative Urine Blood Negative N Negative * * Abnormal Negative 77 Urine Nitrite Negative N Negative Urine Bilirubin Negative N Negative Urine Glucose Negative N Negative Urine White Blood Cell Trace(0-5/hpf) N Absent Urine Red Blood Cell 1+(3-5/hpf) Abnormal Absent Urine Bacteria Absent N Absent Urine Squamous Epithelial Cell Present Abnormal Absent Comp Metabolic Panel 2015 [facility] [place] Sodium 138 mmol/L N 133-145 [address] [place] [address] [phone] Potassium 5.1 mmol/L High 3.5-5.0 Chloride 101 mmol/L N 101-111 Co2 Carbon Dioxide 28 mmol/L N 22-32 Anion Gap 9 mmol/L N 2-11 Glucose 90 mg/dL N 70-100 Blood Urea Nitrogen 19 mg/dL N 6-24 Creatinine 0.72 mg/dL N 0.51-0.95 BUN/Creatinine Ratio 26.4 High 8-20 Calcium 9.7 mg/dL N 8.6-10.3 Total Protein 7.1 g/dL N 6.4-8.9 Albumin 4.8 g/dL N 3.2-5.2 Globulin 2.3 g/dL N 2-4 Albumin/Globulin Ratio 2.1 N 1-3 Total Bilirubin 0.50 mg/dL N 0.2-1.0 Alkaline Phosphatase 80 U/L N 34-104 Alt 98 U/L High 7-52 Ast 78 U/L High 13-39 Egfr Non- 82.1 N >60 Egfr 105.6 N >60 78 1 Desirable: <150 Borderline High: 150-199 High: 200-499 Very High: >500 2 Desirable: <200 Borderline High: 200-239 High: >239 3 Low: <40 Desirable: 40-60 High: >60 4 Desirable: <100 Near Optimal: 100-129 Borderline High: 130-159 High: 160-189 Very High: >189 5 Because ethnic data is not always readily available, this report includes an eGFR for both -Americans and non- Americans. The National Kidney Disease Education Program (NKDEP) does not endorse the use of the MDRD equation for patients that are not between the ages of 18 and 70, are , have extremes of body size, muscle mass, or nutritional status, or are non- or non-. According to the National Kidney Foundation, irrespective of diagnosis, the stage of the disease is based on the level of kidney function: Stage Description GFR(mL/min/1.73 m(2)) 1 Kidney damage with normal or decreased GFR 90 2 Kidney damage with mild decrease in GFR 60-89 3 Moderate decrease in GFR 30-59 4 Severe decrease in GFR 15-29 5 Kidney failure <15 (or dialysis) 6 Presumptive Positive Drug confirmation to follow. Presumptive Positive means that the screening method is positive, but the test needs to be run by a confirmatory method before being finalized. REFERENCE VALUE Cutoff: 500 7 REFERENCE VALUE Cutoff: 200 8 REFERENCE VALUE Cutoff: 100 9 REFERENCE VALUE Cutoff: 150 10 ADDITIONAL INFORMATION This report is intended for use in clinical monitoring or management of patients. It is not intended for use in employment-related testing. 11 REFERENCE VALUE Cutoff: 200 mg/L 12 Tylenol 3 13 Metabolite of codeine REFERENCE VALUE Cutoff: 100 14 Jillian Hameed MS Contin; Also a minor metabolite (10%) of codeine and can be seen in low concentrations (<2,000 ng/mL) with poppy seed ingestion. 15 Metabolite of morphine REFERENCE VALUE Cutoff: 100 16 Metabolite of heroin 17 Lortab, Lorena, Vicodin; Also a very minor metabolite of codeine and impurity (<1%) of oxycodone. 18 Metabolite of hydrocodone 19 Metabolite of hydrocodone 20 Dilaudid, Exalgo; Also a metabolite of hydrocodone and a minor (<5%) metabolite of morphine. 21 Metabolite of hydromorphone REFERENCE VALUE Cutoff: 100 22 Endocet, Percocet, Oxycontin 23 Metabolite of oxycodone 24 Numorphan, Opana; Also a metabolite of oxycodone. 25 Metabolite of oxymorphone REFERENCE VALUE Cutoff: 100 26 Metabolite of oxymorphone 27 Fentanyl results not available due to analyte specific failure. 28 Metabolite of fentanyl 29 Demerol 30 Metabolite of meperidine 31 Narcan 32 Metabolite of naloxone REFERENCE VALUE Cutoff: 100 33 Dolophine 34 Metabolite of methadone 35 Darvon, Darvocet 36 Metabolite of propoxyphene 37 Tradol, Ultram, Ultracet 38 Metabolite of tramadol 39 Nucynta 40 Metabolite of tapentadol 41 Metabolite of tapentadol REFERENCE VALUE Cutoff: 100 42 Buprenex, Suboxone 43 Metabolite of buprenorphine Unknown interfering substance present; unable to obtain results. 44 Metabolite of buprenorphine 45 Test detected the presence of oxycodone and several metabolites (noroxycodone, noroxymorphone, and pckpykffigm-[id number]-glucuronide). Suspect use of oxycodone or possibly oxycodone and oxymorphone within the past three days. ADDITIONAL INFORMATION This test was developed and its performance characteristics determined by [facility] in a manner consistent with CLIA requirements. This test has not been cleared or approved by the U.S. Food and Drug Administration. Test Performed by: [facility] - [address] [address] 46 ADDITIONAL INFORMATION This report is intended for use in clinical monitoring and management of patients. It is not intended for use in employment-related testing. This test was developed and its performance characteristics determined by [facility] in a manner consistent with CLIA requirements. This test has not been cleared or approved by the U.S. Food and Drug Administration. Test Performed by: [facility] - [address] [address] 47 FASTING 48 Desirable: <150 Borderline High: 150-199 High: 200-499 Very High: >500 49 Desirable: <200 Borderline High: 200-239 High: >239 50 Low: <40 Desirable: 40-60 High: >60 51 Desirable: <100 Near Optimal: 100-129 Borderline High: 130-159 High: 160-189 Very High: >189 52 Desirable: <150 Borderline High: 150-199 High: 200-499 Very High: >500 53 Desirable: <200 Borderline High: 200-239 High: >239 54 Low: <40 Desirable: 40-60 High: >60 55 Desirable: <100 Near Optimal: 100-129 Borderline High: 130-159 High: 160-189 Very High: >189 56 Desirable <150 Borderline high 150-199 High 200-499 Very High >500 57 Desirable <200 Borderline high 200-239 High >239 58 Low <40 Desirable: 40-60 High: >60 59 Desirable: <100 mg/dL Near Optimal: 100-129 mg/dL Borderline High: 130-159 mg/dL High: 160-189 mg/dL Very High: >189 mg/dL 60 Because ethnic data is not always readily available, this report includes an eGFR for both -Americans and non- Americans. The National Kidney Disease Education Program (NKDEP) does not endorse the use of the MDRD equation for patients that are not between the ages of 18 and 70, are , have extremes of body size, muscle mass, or nutritional status, or are non- or non-. According to the National Kidney Foundation, irrespective of diagnosis, the stage of the disease is based on the level of kidney function: Stage Description GFR(mL/min/1.73 m(2)) 1 Kidney damage with normal or decreased GFR 90 2 Kidney damage with mild decrease in GFR 60-89 3 Moderate decrease in GFR 30-59 4 Severe decrease in GFR 15-29 5 Kidney failure <15 (or dialysis) 61 Because ethnic data is not always readily available, this report includes an eGFR for both -Americans and non- Americans. The National Kidney Disease Education Program (NKDEP) does not endorse the use of the MDRD equation for patients that are not between the ages of 18 and 70, are , have extremes of body size, muscle mass, or nutritional status, or are non- or non-. According to the National Kidney Foundation, irrespective of diagnosis, the stage of the disease is based on the level of kidney function: Stage Description GFR(mL/min/1.73 m(2)) 1 Kidney damage with normal or decreased GFR 90 2 Kidney damage with mild decrease in GFR 60-89 3 Moderate decrease in GFR 30-59 4 Severe decrease in GFR 15-29 5 Kidney failure <15 (or dialysis) 62 Test Performed by: [place] [address] Wage Hand: George Mace II, M.D., Ph.D. 63 Test Performed by: [place] [address] Wage Hand: George Mace II, M.D., Ph.D. 64 RECTAL BLEEDING 65 Because ethnic data is not always readily available, this report includes an eGFR for both -Americans and non- Americans. The National Kidney Disease Education Program (NKDEP) does not endorse the use of the MDRD equation for patients that are not between the ages of 18 and 70, are , have extremes of body size, muscle mass, or nutritional status, or are non- or non-. According to the National Kidney Foundation, irrespective of diagnosis, the stage of the disease is based on the level of kidney function: Stage Description GFR(mL/min/1.73 m(2)) 1 Kidney damage with normal or decreased GFR 90 2 Kidney damage with mild decrease in GFR 60-89 3 Moderate decrease in GFR 30-59 4 Severe decrease in GFR 15-29 5 Kidney failure <15 (or dialysis) 66 Reference Range and Interpretation: TnI (ng/mL) Interpretation Less Than 0.03 ng/mL Not supportive of diagnosis of GA 0.03 - 0.50 ng/mL Indeterminate: suggest serial studies if clinically indicated. Greater than 0.5 ng/mL Consistent with diagnosis of GA 67 Critical Result LACT:2.1 Called to [id number] at: 22:03:12 by:[id number] Read back by:[id number] [place] [address] Severe Sepsis and Septic Shock Management Bundle Measure requires all lactic acids initially measuring >2.0 mmol/L be repeated. 68 SEE RESULT BELOW Name: GILA DOTSON : [address]: Antoine Robbins MD Acct: [id number] Unit: [id number] AGE: 60 Location: ED Re02/27/16 SEX: F Status: REG ER SPEC: [id number] JAMIE: 02/27/[address] [facility] [address]: Antoine Robbins MD REQ: [id number] RECD: 02/27/16 STATUS: COMP [facility] DR: Xavier Fisher MD _ SOURCE: STOOL SPDESC: ORDERED: Hemoccult Procedure Result Reported Site Stool Occult Blood Final 02/27/16- 2152 ML Stool Occult Blood Positive * ML - MAIN LAB ([facility]) . END OF REPORT * ML=Testing performed at Main Lab DEPARTMENT OF PATHOLOGY, [address] [place] [address] Garcia Berg M.D. Director [facility] # [id number] 69 Normal Range 180 to 914 Indeterminate Range 145 to 180 Deficient Range <145 70 Because ethnic data is not always readily available, this report includes an eGFR for both -Americans and non- Americans. The National Kidney Disease Education Program (NKDEP) does not endorse the use of the MDRD equation for patients that are not between the ages of 18 and 70, are , have extremes of body size, muscle mass, or nutritional status, or are non- or non-. According to the National Kidney Foundation, irrespective of diagnosis, the stage of the disease is based on the level of kidney function: Stage Description GFR(mL/min/1.73 m(2)) 1 Kidney damage with normal or decreased GFR 90 2 Kidney damage with mild decrease in GFR 60-89 3 Moderate decrease in GFR 30-59 4 Severe decrease in GFR 15-29 5 Kidney failure <15 (or dialysis) 71 FASTING 72 SEE RESULT BELOW Name: GILA DOTSON Hilda : [address]: Scott Perez MD Acct: [id number] Unit: [id number] AGE: 60 Location: LAB Re08/18/15 SEX: F Status: REG REF SPEC: [id number] JAMIE: 08/18/15-[address] [facility] [address]: Scott Perez MD REQ: [id number] RECD: 08/18/15652 STATUS: COMP _ SOURCE: URINE SPDESC: ORDERED: Urine Culture Procedure Result Reported Site Urine Culture Final 08/19/15- 1408 ML No growth of clinically significant organisms * ML - MAIN LAB ([facility]) . END OF REPORT * ML=Testing performed at Main Lab DEPARTMENT OF PATHOLOGY, [address] [place] [address] Garcia Berg M.D. Director [facility] # [id number] 73 Desirable <150 Borderline high 150-199 High 200-499 Very High >500 74 Desirable <200 Borderline high 200-239 High >239 75 Low <40 Desirable: 40-60 High: >60 76 Desirable: <100 mg/dL Near Optimal: 100-129 mg/dL Borderline High: 130-159 mg/dL High: 160-189 mg/dL Very High: >189 mg/dL 77 *Ascorbic acid is present which may interfere with detection of blood. 78 Because ethnic data is not always readily available, this report includes an eGFR for both -Americans and non- Americans. The National Kidney Disease Education Program (NKDEP) does not endorse the use of the MDRD equation for patients that are not between the ages of 18 and 70, are , have extremes of body size, muscle mass, or nutritional status, or are non- or non-. According to the National Kidney Foundation, irrespective of diagnosis, the stage of the disease is based on the level of kidney function: Stage Description GFR(mL/min/1.73 m(2)) 1 Kidney damage with normal or decreased GFR 90 2 Kidney damage with mild decrease in GFR 60-89 3 Moderate decrease in GFR 30-59 4 Severe decrease in GFR 15-29 5 Kidney failure <15 (or dialysis) Procedures Date Code Description Status 08/03/2018 [id number] Mammogram Completed 06/01/2017 [id number] Bone Mineral Density Test Completed 11/01/2016 [id number] Mammogram Completed 07/24/2014 [id number] Mammogram Completed 07/24/2014 [id number] Colonoscopy Completed Encounters Type Date Location Provider Dx Diagnosis Office Visit 11/07/2018 [facility] Internal Tamiaofiangie Albert, I10 Essential (primary ) 11:00a Medicine PHLEBOTOMY INSTRUCTOR hypertension R74.0 Nonspec elev of levels of transamns & lactic acid dehydrgnse F33.0 Major depressive disorder, recurrent, mild Office Visit 10/24/2018 1:00p [facility] Internal Rosalinda Albert, I10 Essential ( primary) Medicine PHLEBOTOMY INSTRUCTOR hypertension K21.9 Gastro-esophageal reflux disease without esophagitis R74.0 Nonspec elev of levels of transamns & lactic acid dehydrgnse E78.5 Hyperlipidemia, unspecified Office Visit 08/01/2018 11:50a [facility] Internal Missy J06.9 Acute upper Medicine Josiane Triplett M.D. respiratory [place] infection, unspecified Office Visit 06/06/2018 3:00p [facility] [place] I10 Essential (primary) Medicine [place], hypertension M.D. K21.9 Gastro-esophageal reflux disease without esophagitis H92.09 Otalgia, unspecified ear F33.0 Major depressive disorder, recurrent, mild Z23 Encounter for immunization Office Visit 05/14/2018 1:30p Orthopedic Ad Beltran, S93.491D Sprain of other Services Of MD costello C.M.APlacido right ankle, subs encntr Office Visit 04/17/2018 1:30p Ene [place]tr[place] S93.491A Sprain of other Services Of MD costello C.M.A. right ankle, initial encounter Office Visit 03/28/2018 2:00p Orthopedic Rogelio Lacey M54.12 Radiculopathy, Services Of Vicente cervical region C.M.APlacido Office Visit 03/13/2018 4:00p [facility] [place] M25.511 Pain in right Medicine - Tbangus Fisher M.D. shoulder Rd I10 Essential (primary) hypertension K21.9 Gastro-esophageal reflux disease without esophagitis Office Visit 10/17/2017 [facility] Internal Xavier Z01.818 Encounter for other 3:00p Corrie Fisher M.D. preprocedural [address] examination H26.9 Unspecified cataract I10 Essential (primary) hypertension K21.9 Gastro-esophageal reflux disease without esophagitis Office Visit 09/18/2017 1:20p [facility] Internal Xavier Fisher, I10 Essential (primary) Medicine - M.D. hypertension [address] E78.2 Mixed hyperlipidemia K21.9 Gastro-esophageal reflux disease without esophagitis M50.10 Cervical disc disorder w radiculopathy, unsp cervical region Office Visit 05/29/2017 4:00p [facility] Internal Xavier Fisher, I10 Essential (primary) Medicine - M.D. hypertension [address] E78.2 Mixed hyperlipidemia M81.0 Age-related osteoporosis w/o current pathological fracture M54.2 Cervicalgia K21.9 Gastro-esophageal reflux disease without esophagitis Office Visit 02/14/2017 1:20p [facility] Internal Xavier Fisher, M25.511 Pain in right Medicine - M.D. shoulder [address] I10 Essential (primary) hypertension M54.2 Cervicalgia E78.2 Mixed hyperlipidemia Office Visit 01/19/2017 1:35p [facility] Internal Nurse Visit I10 Essential ( primary) Medicine - [address] Office Visit 01/12/2017 10:30a [facility] Internal Missy I10 Essential (primary ) Medicine Josiane Triplett M.D. hypertension [place] M54.2 Cervicalgia M25.511 Pain in right shoulder Office Visit 12/20/2016 2:40p [facility] Internal Xavier Fisher M54.2 Cervicalgia Medicine - [address] M.D. [address] Office Visit 11/08/2016 2:40p [facility] Internal Xavier Fisher M54.2 Cervicalgia Medicine - [address] M.[address] Office Visit 11/03/2016 4:40p [facility] Internal Xavier Fisher M54.2 Cervicalgia Medicine - [address] M.[address] I10 Essential (primary) hypertension Office Visit 10/31/2016 2:00p [facility] Internal Xavier Fisher, M54.2 Cervicalgia Medicine - [address] M.[address] I10 Essential (primary) hypertension Office Visit 09/26/2016 2:40p [facility] Internal Xavier Fisher, M54.5 Low back Medicine - [address] M.D. pain Rd M54.2 Cervicalgia Office Visit 09/14/2016 2:40p [facility] Internal Wade Sanders, MANAGER [employer]IME M54.2 Cervicalgia Medicine - [address] M54.5 Low back pain Office Visit 07/29/2016 10:15a Orthopedic Brennon S93.401D Sprain of Services Of Vicente Luz unspecified C.M.A. ligament of right ankle, subs encntr Office Visit 07/12/2016 12:15p Orthopedic Brennon S93.401A Sprain of Services Of Vicente Luz unspecified C.M.A. ligament of right ankle, init encntr Office Visit 06/28/2016 12:40p [facility] Internal Wade Sanders, H61.23 Impacted cerumen, Medicine - [place] MANAGER [employer] bilateral Rd Z12.31 Encntr screen mammogram for malignant neoplasm of breast Office Visit 03/10/2016 9:20a [facility] Internal Xavier Fisher, K55.9 Vascular disorder Medicine - M.D. of intestine, [address] unspecified I10 Essential (primary) hypertension G44.201 Tension-type headache, unspecified, intractable F32.8 Other depressive episodes K21.9 Gastro-esophageal reflux disease without esophagitis Office Visit 03/02/2016 [facility] Brennon K52.9 Noninfective 1:40p Assocronni M.D. gastroenteritis and Hospitalists colitis, unspecified K92.1 Melena I10 Essential (primary) hypertension Office Visit 03/01/2016 [facility] Brennon K52.9 Noninfective 1:33p ronni Pappas M.D. gastroenteritis and Hospitalists colitis, unspecified K92.1 [place] I10 Essential (primary) hypertension Office Visit 02/29/2016 [facility] Diamond K52.9 Noninfective 1:32p Assoc,ronni Santa NP gastroenteritis and Hospitalists colitis, unspecified K92.1 [place] I10 Essential (primary) hypertension Office Visit 02/28/2016 [facility] Luis Chanko, K52.9 Noninfective 1:31p Assoc,pc M.D. gastroenteritis and Hospitalists colitis, unspecified K92.1 [place] I10 Essential (primary) hypertension Office Visit 12/15/2015 1:20p [facility] Internal Xavire Fisher, R51 Headache Medicine - [address] M.D. E78.2 Mixed hyperlipidemia R94.5 Abnormal results of liver function studies Office Visit 12/07/2015 1:40p [facility] Internal Wade Sanders, G44.201 Tension- type Medicine - MANAGER MARITIME headache, [address] unspecified, intractable D64.9 Anemia, unspecified Office Visit 10/13/2015 1:40p [facility] Internal Scott Perez, I10 Essential ( primary) Medicine - [place] M.D. hypertension Rd E78.2 Mixed hyperlipidemia R94.5 Abnormal results of liver function studies K75.81 Nonalcoholic steatohepatitis ([place]) F32.8 Other depressive episodes R51 Headache Office Visit 08/26/2015 2:20p [facility] Internal Scott Perez, I10 Essential ( primary) Medicine - [place] M.D. hypertension Rd E78.2 Mixed hyperlipidemia R94.5 Abnormal results of liver function studies H11.31 Conjunctival hemorrhage, right eye R51 Headache M54.2 Cervicalgia K21.9 Gastro-esophageal reflux disease without esophagitis Office Visit 08/12/2015 2:40p [facility] Internal Scott Perez, I10 Essential ( primary) Medicine - [place] M.D. hypertension Rd R51 Headache K21.9 Gastro-esophageal reflux disease without esophagitis M54.2 Cervicalgia Plan of Treatment Future Appointment(s):12/20/2018 9:00 am - Kendra Almanzar MD at [facility] Internal Lrqvpqhq21/20/2019 - Missy Triplett M.D.H92.09 Otalgia, unspecified earComments :please see the ENTReferral:Serjio Craig MD, JghelhpadetxsnW75.13 Benign paroxysmal vertigo, bilateralNew Therapy:Physical IneawfxV48.23 Impacted cerumen , riggardmyN74.0 Nonspecific elevation of levels of transaminase and lactic a
--- OUTSIDE RECORDS SUMMARY | 2018-12-11 14:43 | XMS REPORT | Continuity of Care Document ---
:1955 External Reference #:[id number] Author Name Neno Engle M.D. Address [address] [place] [address] Care Team Providers Name Role Phone Xavier Fisher MD Care Team Information Supervisor Process Testing Unavailable Xavier Fisher MD Primary Care Physician Unavailable Payers Date Identification Numbers Payment Provider Subscriber Policy Number: [id number] [employer] [facility] Gila Ortez PayID: [id number] [address] [address] [place] [address] Problems Active Problems Provider Date Essential hypertension Neno Engle M.D. Onset: 06/29/2016 Family History Date Family Member(s) Observation Comments General Cancer General Hearing Loss General Heart Disease General Migraine Father Cancer Father Hearing Loss Father Heart Disease Mother Migraine Social History Type Date Description Comments Sex Unknown Occupation Retired Tobacco Use Start: Unknown Never Smoked Cigarettes Tobacco Use Start: Unknown Never Smoked Cigars Tobacco Use Start: Unknown Never Smoked A Pipe Smokeless Tobacco Never Used Smokeless Tobacco ETOH Use Currently rarely consumes alcohol Tobacco Use Start: Unknown Patient has never smoked Smoking Status Reviewed: 12/10/18 Patient has never smoked Allergies, Adverse Reactions, Alerts Description No Known Drug Allergies Medications Active Medications SIG Qnty Indications Ordering Provider Date Omeprazole 1 by mouth twice a Jatin Zhang, 40mg day the twice a day Brennon Capsules DR dosing is indicated for this patient Venlafaxine HCL ER as directed Jatin Zhang, Brennon 150mg Tablets ER 24HR Metoprolol Succinate as directed Jatin Zhang, ER Brennon 50mg Tablets ER 24HR Bupropion HCL ER as directed Jatin Zhang, (Smoking Det) Brennon 150mg Tablets ER 12HR History Medications Trazodone HCL 1 by mouth as Jatin Zhang, - 50mg Tablets needed Brennon 06/18/2018 Oxycodone-Acetaminophen 1-2 by mouth Jatin Zhang, - 5-325mg every 4 hours Brennon 06/18/2018 Tablets pain Cyclobenzaprine HCL prn Jatin Zhang, - 5mg Tablets Brennon 06/18/2018 Vital Signs Date Vital Result Comment 12/11/2018 1:26pm Weight 135.00 lb Weight 61.236 kg Height 64 inches 5'4" Height in cm's 162.6 cm BMI (Body Mass Index) 23.2 kg/m2 08/28/2018 1:41pm Weight 135.00 lb Weight 61.236 kg Height 64 inches 5'4" Height in cm's 162.6 cm BMI (Body Mass Index) 23.2 kg/m2 06/18/2018 1:38pm Weight 140.00 lb Weight 63.504 kg Height 64 inches 5'4" Height in cm's 162.6 cm BMI (Body Mass Index) 24.0 kg/m2 06/29/2016 4:01pm BP Systolic 114 mmHg BP Diastolic 91 mmHg Heart Rate 74 /min Respiratory Rate 17 /min Weight 138.00 lb Weight 62.597 kg Height 64 inches 5'4" Height in cm's 162.6 cm BMI (Body Mass Index) 23.7 kg/m2 Procedures Date Code Description Status 08/28/2018 42956 Fiberoptic Laryngoscopy Completed 06/29/2016 04103 Removal Wax Impaction Completed Encounters Type Date Location Provider Dx Diagnosis Office Visit 12/11/2018 Marcie,Gloria [place] H92.03 Otalgia, bilateral 1:45p 07/24/07 Vicente Engle R47.81 Slurred speech R13.0 Aphagia R53.1 Weakness Office Visit 08/28/2018 1:30p Marcie,Gloria 07/24/07 Hetal [place], M54.2 Cervicalgia PA-C 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 I do not know the definitive source of either of these. She does have decreased ROM of her TMJ having had TMJ surgery many years ago, but her TMJ is not tender. She does have some cervical tenderness on palpation but I can't saythis is the cause either. Her nasolaryngoscopy is normal.What concerns me today is she reports about a week of having intermittent slurred speech and having difficulty getting her words out. She will reach for a word and can't get it out. She has also developed some lower extremity weakness.I think the best way to get this worked up is for her to go to the ER. I have spoken to DR. Ty Davis. She will go there now.R47.81 Slurred pcncveI86.0 SxlehygO21.1 Weakness
[2018-12-11 16:46] LABS: ABS Lymphocytes 0.7 10^3/ul (1.0-4.8); ABS Monocytes 0.3 10^3/ul (0-0.8); ABS Neutrophils 3.1 10^3/ul (1.5-7.7); Eosinophil % 0.8 %; Hematocrit 35 % (35-47); Hemoglobin 11.8 g/dL (12.0-16.0); Lymphocyte % 16.8 %; Mean Corpuscular HGB Conc 34 g/dL (31-36); Mean Corpuscular Hemoglobin 34 pg (27-31); Mean Corpuscular Volume 99 fL (80-97); Mean Platelet Volume 7.7 fL (7.4-10.4); Nucleated Red Blood Cells % 0.1; Platelet Count 288 10^3/uL (150-450); Red Blood Count 3.53 10^6 /uL (3.70-4.87); Red Cell Distribution Width 13 % (10.5-15); White Blood Count 4.1 10^3/uL (3.5-10.8)
[2018-12-11 16:54] LABS: INR 0.95 (0.82-1.09)
[2018-12-11 17:04] LABS: Albumin 4.5 g/dL (3.2-5.2); Albumin/Globulin Ratio 1.6 (1-3); BUN/Creatinine Ratio 18.4 (8-20); C Reactive Protein 3.93 mg/L (<8.01); Calcium 10.1 mg/dL (8.6-10.3); EGFR African American 79.1 (>60); EGFR Non-African American 65.3 (>60); Globulin 2.8 g/dL (2-4); Magnesium 1.9 mg/dL (1.9-2.7); Potassium 4.4 mmol/L (3.5-5.0); Total Bilirubin 0.5 mg/dL (0.2-1.0); Total Protein 7.3 g/dL (6.4-8.9)
[2018-12-11 17:20] LABS: TSH (Thyroid Stimulating Horm) 1.18 mcIU/mL (0.34-5.60)
[2018-12-11 17:42] LABS: Urine Appearance Cloudy; Urine Bacteria Absent (Absent); Urine Bilirubin Negative (Negative); Urine Blood Negative (Negative); Urine Color Yellow; Urine Glucose Negative (Negative); Urine Ketones Negative (Negative); Urine Nitrite Negative (Negative); Urine Protein Negative (Negative); Urine Red Blood Cell Absent (Absent); Urine Specific Gravity 1.018 (1.010-1.030); Urine Squamous Epithelial Cell Present (Absent); Urine Urobilinogen Negative (Negative); Urine White Blood Cell 2+(11-20/hpf) (Absent)
[2018-12-11] MEDS ORDERED: Cephalexin CAP* 500 MG PO ONE (17:57)
--- NOTE | 2018-12-11 18:04 | ED ---
Complex/Multi-Sys Presentation - HPI Summary HPI Summary: Patient complains of persistent earache and sore throat 10 months, has been evaluated by ENT twice with no formal diagnosis. Also complains of one week of slurring speech when her mouth is dry, bilateral lower extremity weakness 1 week worse today, numbness and tingling in bilateral upper extremities. Patient was evaluated by [employer] this past week and was diagnosed with vertigo. Patient also complains of sleeping a lot at least 14 hours a day times the past 6 months. Eating and drinking normally. Denies fever, cough, CP, SOB, N/V/V abdominal pain, change in urine, change in BM, facial droop, unilateral weakness , vision change, FRIEDMAN. Medical history is HTN, arthritis, depression, GERD. No new medications. - History Of Current Complaint Chief Complaint: EDNeurologicalDeficit Time Seen by Provider: 12/11/18 15:51 Hx Obtained From: Patient Onset/Duration: Gradual Onset, Lasting Days Timing: Intermittent, Lasting: Severity Currently: Moderate Severity Initially: Moderate Associated Signs And Symptoms: Positive: Weakness - Allergies/Home Medications Allergies/Adverse Reactions: Allergies Allergy/AdvReac Type Severity Reaction Status Date / Time No Known Allergies Allergy Verified 07/30/17 18:56 Home Medications: Home Medications Cholecalciferol (Vitamin D3) [Vitamin D3] 5,000 unit PO DAILY 12/11/18 [History Confirmed 12/11/18] Metoprolol Succinate XL TAB* [Toprol XL TAB*] 100 mg PO DAILY 12/11/18 [History Confirmed 12/11/18] Omeprazole (Nf) [Prilosec (NF)] 40 mg PO DAILY 12/11/18 [History Confirmed 12/11] Venlafaxine EXT RELEASE CAP* [Effexor Xr CAP*] 225 mg PO DAILY 12/11/18 [ History Confirmed 12/11/18] amLODIPine TAB* [Norvasc 5 mg TAB*] 5 mg PO DAILY 12/11/18 [History Confirmed ] buPROPion SR TAB* [Wellbutrin SR TAB*] 200 mg PO DAILY 12/11/18 [History Confirmed 12/11/18] PMH/Surg Hx/FS Hx/Imm Hx Endocrine/Hematology History: Denies: Hx Diabetes, Hx Thyroid Disease Cardiovascular History: Denies: Hx Hypertension Respiratory History: Denies: Hx Asthma GI History: Reports: Hx Gastroesophageal Reflux Disease Denies: Hx Ulcer History: Denies: Hx Renal Disease Musculoskeletal History: Reports: Hx Osteoporosis, Other Musculoskeletal History - Chronic neck pain Sensory History: Reports: Hx Cataracts Opthamlomology History: Reports: Hx Cataracts Neurological History: Denies: Hx Developmental Delay Psychiatric History: Denies: Hx Autism - Cancer History Cancer Type, 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 Hx Chemotherapy: No Hx Radiation Therapy: No - Surgical History Surgery Procedure, Year, and Place: TMJ, Hysterectomy, cataract right eye Infectious Disease History: No Infectious Disease History: Reports: Hx Shingles - 8 yrs ago Denies: Hx Clostridium Difficile, Hx Hepatitis, Hx Human Immunodeficiency Virus (HIV), Hx of Known/Suspected MRSA, Hx Tuberculosis, Hx Known/Suspected VRE , Hx Known/Suspected VRSA, History Other Infectious Disease, Traveled Outside the [place] in Last 30 Days - Family History Known Family History: Positive: Hypertension, Other - liver cancer Negative: Diabetes - Social History Alcohol Use: Rare Substance Use Type: Reports: None Smoking Status (MU): Never Smoked Tobacco Review of Systems Constitutional: Negative Eyes: Negative Positive: Sore Throat, Ear Ache Cardiovascular: Negative Respiratory: Negative Gastrointestinal: Negative Genitourinary: Negative Musculoskeletal: Negative Skin: Negative Positive: Weakness Psychological: Normal All Other Systems Reviewed And Are Negative: Yes Physical Exam - Summary Physical Exam Summary: Neuro exam normal. No slurred speech observed. Strength normal and bilateral upper and lower extremities. Patient ambulates to the bathroom with no indication of difficulty. Abdomen soft nontender. Lung sounds clear to auscultation bilaterally. RRR. ENT exam unremarkable. Triage Information Reviewed: Yes Vital Signs On Initial Exam: Initial Vitals Temp Pulse Resp BP Pulse Ox 97.2 F 78 18 141/88 99 12/11/18 14:32 12/11/18 14:32 12/11/18 14:32 12/11/18 14:32 12/11/18 14:32 Vital Signs Reviewed: Yes Appearance: Positive: Well-Appearing Skin: Positive: Warm Head/Face: Positive: Normal Head/Face Inspection Eyes: Positive: Normal ENT: Positive: Normal ENT inspection Neck: Positive: Supple Respiratory/Lung Sounds: Positive: Clear to Auscultation Cardiovascular: Positive: Normal Abdomen Description: Positive: Nontender Musculoskeletal: Positive: Normal Neurological: Positive: Normal Psychiatric: Positive: Normal AVPU Assessment: Alert - Zayra Coma Scale Best Eye Response: 4 - Spontaneous Best Motor Response: 6 - Obeys Commands Best Verbal Response: 5 - Oriented Coma Scale Total: 15 Diagnostics - Vital Signs Vital Signs Temp Pulse Resp BP Pulse Ox 12/11/18 14:32 97.2 F 78 18 141/88 99 - Laboratory Lab Results: Lab Results 12/11/18 12/11/18 12/11/18 Range/Units 16:36 16:36 16:36 WBC 4.1 (3.5-10.8) 10^3/uL RBC 3.53 L (3.70-4.87) 10^6 /uL Hgb 11.8 L (12.0-16.0) g/dL Hct 35 (35-47) % MCV 99 H (80-97) fL MCH 34 H (27-31) pg MCHC 34 (31-36) g/dL RDW 13 (10.5-15) % Plt Count 288 (150-450) 10^3/uL MPV 7.7 (7.4-10.4) fL Neut % (Auto) 75.3 % Lymph % (Auto) 16.8 % [place] % (Auto) 6.5 % Eos % (Auto) 0.8 % Baso % (Auto) 0.6 % Absolute Neuts (auto) 3.1 (1.5-7.7) 10^3/ul Absolute Lymphs (auto) 0.7 L (1.0-4.8) 10^3/ul Absolute Monos (auto) 0.3 (0-0.8) 10^3/ul Absolute Eos (auto) 0.0 (0-0.6) 10^3/ul Absolute Basos (auto) 0.0 (0-0.2) 10^3/ul Absolute Nucleated RBC 0.0 10^3/ul Nucleated RBC % 0.1 INR (Anticoag Therapy) 0.95 (0.82-1.09) Sodium 138 (135-145) mmol/L Potassium 4.4 (3.5-5.0) mmol/L Chloride 103 (101-111) mmol/L Carbon Dioxide 27 (22-32) mmol/L Anion Gap 8 (2-11) mmol/L BUN 16 (6-24) mg/dL Creatinine 0.87 (0.51-0.95) mg/dL Est GFR ( Amer) 79.1 (>60) Est GFR (Non-Af Amer) 65.3 (>60) BUN/Creatinine Ratio 18.4 (8-20) Glucose 108 H (70-100) mg/dL Calcium 10.1 (8.6-10.3) mg/dL Magnesium 1.9 (1.9-2.7) mg/dL Total Bilirubin 0.50 (0.2-1.0) mg/dL AST 59 H (13-39) U/L ALT 63 H (7-52) U/L Alkaline Phosphatase 92 (34-104) U/L Troponin I (<0.04) ng/mL C-Reactive Protein 3.93 (<8.01) mg/L Total Protein 7.3 (6.4-8.9) g/dL Albumin 4.5 (3.2-5.2) g/dL Globulin 2.8 (2-4) g/dL Albumin/Globulin Ratio 1.6 (1-3) TSH 1.18 (0.34-5.60) mcIU/mL Urine Color Urine Appearance Urine pH (5-9) Ur Specific [place] (1.010-1.030) Urine Protein (Negative) Urine Ketones (Negative) Urine Blood (Negative) Urine Nitrate (Negative) Urine Bilirubin (Negative) Urine Urobilinogen (Negative) Ur Leukocyte Esterase (Negative) Urine WBC (Auto) (Absent) Urine RBC (Auto) (Absent) Ur Squamous Epith Cells (Absent) Urine Bacteria (Absent) Hyaline Casts (Absent) Urine Glucose (Negative) Urine Ascorbic Acid (Negative) 12/11/18 12/11/18 Range/Units 16:36 17:25 WBC (3.5-10.8) 10^3/uL RBC (3.70-4.87) 10^6 /uL Hgb (12.0-16.0) g/dL Hct (35-47) % MCV (80-97) fL MCH (27-31) pg MCHC (31-36) g/dL RDW (10.5-15) % Plt Count (150-450) 10^3/uL MPV (7.4-10.4) fL Neut % (Auto) % Lymph % (Auto) % [place] % (Auto) % Eos % (Auto) % Baso % (Auto) % Absolute Neuts (auto) (1.5-7.7) 10^3/ul Absolute Lymphs (auto) (1.0-4.8) 10^3/ul Absolute Monos (auto) (0-0.8) 10^3/ul Absolute Eos (auto) (0-0.6) 10^3/ul Absolute Basos (auto) (0-0.2) 10^3/ul Absolute Nucleated RBC 10^3/ul Nucleated RBC % INR (Anticoag Therapy) (0.82-1.09) Sodium (135-145) mmol/L Potassium (3.5-5.0) mmol/L Chloride (101-111) mmol/L Carbon Dioxide (22-32) mmol/L Anion Gap (2-11) mmol/L BUN (6-24) mg/dL Creatinine (0.51-0.95) mg/dL Est GFR ( Amer) (>60) Est GFR (Non-Af Amer) (>60) BUN/Creatinine Ratio (8-20) Glucose (70-100) mg/dL Calcium (8.6-10.3) mg/dL Magnesium (1.9-2.7) mg/dL Total Bilirubin (0.2-1.0) mg/dL AST (13-39) U/L ALT (7-52) U/L Alkaline Phosphatase (34-104) U/L Troponin I 0.00 (<0.04) ng/mL C-Reactive Protein (<8.01) mg/L Total Protein (6.4-8.9) g/dL Albumin (3.2-5.2) g/dL Globulin (2-4) g/dL Albumin/Globulin Ratio (1-3) TSH (0.34-5.60) mcIU/mL Urine Color Yellow Urine Appearance Cloudy Urine pH 6.0 (5-9) Ur Specific [place] 1.018 (1.010-1.030) Urine Protein Negative (Negative) Urine Ketones Negative (Negative) Urine Blood Negative (Negative) Urine Nitrate Negative (Negative) Urine Bilirubin Negative (Negative) Urine Urobilinogen Negative (Negative) Ur Leukocyte Esterase 1+ A (Negative) Urine WBC (Auto) 2+(11-20/hpf) A (Absent) Urine RBC (Auto) Absent (Absent) Ur Squamous Epith Cells Present A (Absent) Urine Bacteria Absent (Absent) Hyaline Casts Present A (Absent) Urine Glucose Negative (Negative) Urine Ascorbic Acid * A (Negative) Result Diagrams: 12/11/18 16:36 12/11/18 16:36 Lab Statement: Any lab studies that have been ordered have been reviewed, and results considered in the medical decision making process. Complex Multi-Symp Course/Dx Course Of Treatment: Patient complains of persistent earache and sore throat 10 months, has been evaluated by ENT twice with no formal diagnosis. Also complains of one week of slurring speech when her mouth is dry, bilateral lower extremity weakness 1 week worse today, numbness and tingling in bilateral upper extremities. Patient was evaluated by [employer] this past week and was diagnosed with vertigo. Patient also complains of sleeping a lot at least 14 hours a day times the past 6 months. Eating and drinking normally. Denies fever, cough, CP, SOB, N/V/V abdominal pain, change in urine, change in BM, facial droop, unilateral weakness, vision change, FRIEDMAN. Medical history is HTN, arthritis, depression, GERD. No new medications. Physical exam:Neuro exam normal. No slurred speech observed. Strength normal and bilateral upper and lower extremities. Patient ambulates to the bathroom with no indication of difficulty. Abdomen soft nontender. Lung sounds clear to auscultation bilaterally. RRR. ENT exam unremarkable. Vital signs within normal limits. Hemoglobin and patient baseline. Labs unremarkable. CT brain negative for acute process. EKG sinus rhythm. Patient ambulatory with no indication of difficulty. Neuro exam normal. UA positive for UTI. Rx for Keflex. - Diagnoses Provider Diagnoses: UTI (urinary tract infection), Weakness Discharge - Sign-Out/Discharge Documenting (check all that apply): Patient Departure Patient Received Moderate/Deep Sedation with Procedure: No - Discharge Plan Condition: Stable Disposition: HOME Prescriptions: Cephalexin CAP* [Keflex CAP*] 500 mg PO TID 7 Days #21 cap Patient Education Materials: Urinary Tract Infection in Women (ED), Weakness ( ED) Referrals: Kendra Almanzar MD [Primary Care Provider] - Lele Hines MD [Medical Doctor] - Additional Instructions: Continue to follow up with ENT for ear and throat pain as well as neurology Dr. Hines for further evaluation. Take antibiotics as directed for urinary tract infection. Follow-up with primary care. Return to the ED for any new or worsening symptoms. - Billing Disposition and Condition Condition: STABLE Disposition: Home
[2018-12-11 18:25] VITALS: BP 110/65
== END 2018-12-11 18:20 | disposition home or self-care (01) ==
LOC: ED 14:30
DX: N39.0 Urinary tract infection, site not specified (principal); R53.1 Weakness; Z79.899 Other long term (current) drug therapy
CPT/HCPCS: 36415; 70450; 80053; 81003; 81015; 83735; 84443; 84484; 85025; 85610; 86140; 87086; 93005; 99282; A9270-GY

== ENCOUNTER 2020-04-24 14:20 | Inpatient (IN) ==
[2020-04-24] MEDS ORDERED: NS 0.9% 1000 ml BAG 1,000 ML IV ONE (14:54)
[2020-04-24 15:13] LABS: ABS Basophils 0.1 10^3/ul (0-0.2); ABS Eosinophils 0.1 10^3/ul (0-0.6); ABS Lymphocytes 1.5 10^3/ul (1.0-4.8); ABS Monocytes 0.4 10^3/ul (0-0.8); ABS Neutrophils 6.3 10^3/ul (1.5-7.7); Eosinophil % 1.3 %; Hematocrit 37 % (35-47); Hemoglobin 12.7 g/dL (12.0-16.0); Lymphocyte % 18.1 %; Mean Corpuscular HGB Conc 35 g/dL (31-36); Mean Corpuscular Hemoglobin 35 pg (27-31); Mean Corpuscular Volume 101 fL (80-97); Mean Platelet Volume 8.1 fL (7.4-10.4); Platelet Count 370 10^3/uL (150-450); Red Blood Count 3.64 10^6 /uL (3.70-4.87); Red Cell Distribution Width 14 % (10-15); White Blood Count 8.4 10^3/uL (3.5-10.8)
[2020-04-24 15:51] LABS: Activated Partial Thrombo Time 25.9 seconds (26.0-38.0); Albumin 4.7 g/dL (3.2-5.2); Albumin/Globulin Ratio 1.5 (1-3); BUN/Creatinine Ratio 11.5 (8-20); Calcium 9.8 mg/dL (8.6-10.3); EGFR African American 64.2 (>60); Globulin 3.2 g/dL (2-4); INR 0.99 (0.82-1.09); Potassium 4.5 mmol/L (3.5-5.0); Total Bilirubin 0.7 mg/dL (0.2-1.0); Total Protein 7.9 g/dL (6.4-8.9)
[2020-04-24] MEDS: levETIRAcetam 500 MG IVPREMIX 500 MG/100 ML BAG IV SCH (20:11)
[2020-04-24 20:42] LABS: Urine Appearance Clear; Urine Bilirubin Negative (Negative); Urine Blood Negative (Negative); Urine Color Yellow; Urine Glucose Negative (Negative); Urine Ketones Negative (Negative); Urine Nitrite Negative (Negative); Urine Protein Negative (Negative); Urine Specific Gravity 1.012 (1.010-1.030); Urine Urobilinogen Negative (Negative)
[2020-04-24] MEDS: Labetalol IV 5 MG/ML 20 ml VIAL IV PUSH PRN (22:21)
[2020-04-25 04:33] LABS: Hematocrit 32 % (35-47); Hemoglobin 11.1 g/dL (12.0-16.0); Mean Corpuscular HGB Conc 35 g/dL (31-36); Mean Corpuscular Hemoglobin 35 pg (27-31); Mean Corpuscular Volume 101 fL (80-97); Mean Platelet Volume 7.8 fL (7.4-10.4); Platelet Count 289 10^3/uL (150-450); Red Blood Count 3.18 10^6 /uL (3.70-4.87); Red Cell Distribution Width 14 % (10-15)
[2020-04-25 04:47] LABS: INR 1.02 (0.82-1.09)
[2020-04-25 04:53] LABS: BUN/Creatinine Ratio 12.8 (8-20); Calcium 8.9 mg/dL (8.6-10.3); EGFR African American 79.9 (>60); Magnesium 1.8 mg/dL (1.9-2.7); Phosphorus 3.7 mg/dL (2.5-5.0); Potassium 3.9 mmol/L (3.5-5.0)
[2020-04-25] MEDS ORDERED: Magnesium Sulfate 2 gm BAG 2 GM/50 ML BAG IVPB ONE (07:09)
[2020-04-25] MEDS: levETIRAcetam 500 MG IVPREMIX 500 MG/100 ML BAG IV SCH ×2 (07:47→20:57)
[2020-04-25] MEDS: Labetalol IV 5 MG/ML 20 ml VIAL IV PUSH PRN (07:49)
[2020-04-25] MEDS ORDERED: Lactated Ringers 1000 ml BAG 1,000 ML IV SCH (08:00)
[2020-04-25] MEDS: Venlafaxine XR 75 mg PO SCH (08:07)
[2020-04-25] MEDS: buPROPion SR 200 mg TAB.SR PO SCH (08:10)
[2020-04-26] MEDS: Venlafaxine XR 75 mg PO SCH (07:50)
[2020-04-26] MEDS: buPROPion SR 200 mg TAB.SR PO SCH (07:52)
[2020-04-26] MEDS ORDERED: Influenza VAC *QUAD* 2020-21* 0.5 ML SYRINGE IM ONE (09:00)
[2020-04-27 08:25] VITALS: BP 139/80
[2020-04-27] MEDS: Venlafaxine XR 75 mg PO SCH (08:38)
[2020-04-27] MEDS: buPROPion SR 200 mg TAB.SR PO SCH (08:46)
== END 2020-04-27 11:05 | disposition home or self-care (01) | DRG 87 ==
LOC: ED 14:20 → ICU 18:32 → MEDTELE 04-25 12:41
PROVIDERS: ADMIT Internal Medicine; ATTEND Internal Medicine

== ENCOUNTER 2022-06-27 12:19 | Inpatient (IN) ==
[2022-06-27 13:48] LABS: ABS Lymphocytes 0.9 10^3/ul (1.0-4.8); ABS Monocytes 0.5 10^3/ul (0-0.8); ABS Neutrophils 7.9 10^3/ul (1.5-7.7); Eosinophil % 0.2 %; Hematocrit 35 % (35-47); Hemoglobin 11.6 g/dL (12.0-16.0); Lymphocyte % 9.6 %; Mean Corpuscular HGB Conc 33 g/dL (31-36); Mean Corpuscular Hemoglobin 33 pg (27-31); Mean Corpuscular Volume 101 fL (80-97); Mean Platelet Volume 8.4 fL (7.4-10.4); Nucleated Red Blood Cells % 0.1; Platelet Count 304 10^3/uL (150-450); Red Blood Count 3.49 10^6 /uL (3.70-4.87); Red Cell Distribution Width 15 % (10-15); White Blood Count 9.4 10^3/uL (3.5-10.8)
[2022-06-27 14:19] LABS: Activated Partial Thrombo Time 25.4 seconds (26.0-38.0); INR 0.96 (0.89-1.11)
[2022-06-27 14:22] LABS: ALT 28 U/L (7-52); Albumin 4.2 g/dL (3.2-5.2); Albumin/Globulin Ratio 1.8 (1-3); Alkaline Phosphatase 75 U/L (35-149); Blood Urea Nitrogen 25 mg/dL (6-24); CO2 Carbon Dioxide 26 mmol/L (22-32); Calcium 9.4 mg/dL (8.6-10.3); Chloride 101 mmol/L (101-111); Globulin 2.3 g/dL (2-4); Glucose 111 mg/dL (70-100); Sodium 136 mmol/L (135-145); Total Protein 6.5 g/dL (6.4-8.9); eGFR CKD-EPI 42.1 (>60)
[2022-06-27 14:54] LABS: Anion Gap 9 mmol/L (2-11)
[2022-06-27] MEDS ORDERED: Enoxaparin 40 MG/0.4 ML SYR SUBCUT SCH (16:00)
[2022-06-27] MEDS: Lactated Ringers 1000 ml BAG 1,000 ML IV ONE ×2 (17:09→17:28)
[2022-06-27] MEDS: Morphine 2 MG/ML SYRINGE IV PRN ×2 (17:34→22:38)
[2022-06-27] MEDS ORDERED: Lactated Ringers 1000 ml BAG 1,000 ML IV ONE (18:21)
[2022-06-27 18:33] LABS: Potassium Redraw 4.5 mmol/L (3.5-5.0)
[2022-06-27] MEDS ORDERED: Enoxaparin 40 MG/0.4 ML SYR SUBCUT ONE ×2 (20:00)
[2022-06-27] MEDS: Acetaminophen IV 1 GM/100ML 1,000 MG/100 ML BAG IV PRN (21:47)
[2022-06-28] MEDS: Morphine 2 MG/ML SYRINGE IV PRN ×4 (04:36→19:55)
[2022-06-28 06:10] LABS: ABS Eosinophils 0.1 10^3/ul (0-0.6); ABS Lymphocytes 1.2 10^3/ul (1.0-4.8); ABS Monocytes 0.4 10^3/ul (0-0.8); ABS Neutrophils 4.6 10^3/ul (1.5-7.7); Eosinophil % 0.9 %; Hematocrit 32 % (35-47); Hemoglobin 10.7 g/dL (12.0-16.0); Mean Corpuscular HGB Conc 33 g/dL (31-36); Mean Corpuscular Hemoglobin 34 pg (27-31); Mean Corpuscular Volume 102 fL (80-97); Mean Platelet Volume 7.8 fL (7.4-10.4); Platelet Count 231 10^3/uL (150-450); Red Blood Count 3.15 10^6 /uL (3.70-4.87); Red Cell Distribution Width 14 % (10-15); White Blood Count 6.3 10^3/uL (3.5-10.8)
[2022-06-28 06:47] LABS: Calcium 9.1 mg/dL (8.6-10.3); Magnesium 1.9 mg/dL (1.9-2.7); Phosphorus 3.5 mg/dL (2.5-5.0); Potassium 4.7 mmol/L (3.5-5.0); eGFR CKD-EPI 46.1 (>60)
[2022-06-28] MEDS: Venlafaxine XR 75 mg PO SCH (08:34)
[2022-06-28] MEDS: buPROPion SR 200 mg TAB.SR PO SCH (08:34)
[2022-06-28] MEDS ORDERED: Polyethylene Glycol 3350 17 GM PACKET PO PRN (08:40)
[2022-06-28] MEDS ORDERED: NS 0.9% 1000 ml BAG 1,000 ML IV SCH (08:45)
[2022-06-28] MEDS ORDERED: Propofol 10 MG/ML 20 ML BTL ONE (13:57)
[2022-06-28] MEDS ORDERED: fentaNYL 100 mcg/2 ml 50 MCG/ML VIAL ONE (13:57)
[2022-06-28] MEDS ORDERED: Lidocaine 2% PF 5 ML VIAL ONE (13:57)
[2022-06-28] MEDS ORDERED: Midazolam 2 mg/2 ml VIAL 1 mg/ml 2 ml VIAL (2 mg) ONE (13:57)
[2022-06-28] MEDS ORDERED: ceFAZolin 2 GM PREMIX 2 GM/50 ML BAG ONE (13:58)
[2022-06-28] MEDS ORDERED: Artificial Tear OPHTH.OINT 3.5 GM ONE (14:14)
[2022-06-28] MEDS ORDERED: Ondansetron 4 mg VIAL 2 MG/ML 2 ml VIAL ONE (14:24)
[2022-06-28] MEDS ORDERED: Dexamethasone IV 4 MG/ML VIAL 1 ml VIAL ONE (14:24)
[2022-06-28] MEDS ORDERED: Glycopyrrolate IV 0.2 MG/ML 1 ML VIAL ONE ×2 (14:26→14:34)
[2022-06-28] MEDS ORDERED: Phenylephrine IV 10 MG/ML 1 ml VIAL ONE (14:34)
[2022-06-28] MEDS ORDERED: Bupivacaine 0.5% 50 ML MDV VIAL ONE (14:40)
[2022-06-28] MEDS ORDERED: Morphine 10 MG/ML VIAL (1 ml) ONE (14:49)
[2022-06-28] MEDS ORDERED: Acetaminophen IV 1 GM/100ML 1,000 MG/100 ML BAG IV ONE (14:55)
[2022-06-28] MEDS ORDERED: fentaNYL 100 mcg/2 ml 50 MCG/ML VIAL IV PRN (15:34)
[2022-06-28] MEDS ORDERED: Naloxone 0.4 mg VIAL 0.4 mg/ml 1 ml VIAL IV PRN (15:34)
[2022-06-28] MEDS ORDERED: Prochlorperazine 5 mg/ml 2 ml VIAL (10 mg) IV PRN (15:34)
[2022-06-28] MEDS ORDERED: oxyCODONE/Acetamin 5/325 mg TAB PO PRN (15:34)
[2022-06-29] MEDS: Morphine 2 MG/ML SYRINGE IV PRN (05:40)
[2022-06-29] MEDS: Enoxaparin 40 MG/0.4 ML SYR SUBCUT SCH (07:45)
[2022-06-29] MEDS: Venlafaxine XR 75 mg PO SCH (07:46)
[2022-06-29] MEDS: Senna TAB 8.6 mg TAB PO PRN ×2 (07:46→20:52)
[2022-06-29] MEDS: buPROPion SR 200 mg TAB.SR PO SCH (07:48)
[2022-06-29] MEDS: Acetaminophen IV 1 GM/100ML 1,000 MG/100 ML BAG IV PRN (10:15)
[2022-06-30] MEDS: Acetaminophen IV 1 GM/100ML 1,000 MG/100 ML BAG IV PRN ×2 (04:50→15:35)
[2022-06-30 06:37] LABS: ABS Eosinophils 0.1 10^3/ul (0-0.6); ABS Lymphocytes 1.3 10^3/ul (1.0-4.8); ABS Monocytes 0.4 10^3/ul (0-0.8); ABS Neutrophils 3.9 10^3/ul (1.5-7.7); Hematocrit 25 % (35-47); Hemoglobin 8.5 g/dL (12.0-16.0); Lymphocyte % 22.4 %; Mean Corpuscular HGB Conc 34 g/dL (31-36); Mean Corpuscular Hemoglobin 35 pg (27-31); Mean Corpuscular Volume 103 fL (80-97); Mean Platelet Volume 8.3 fL (7.4-10.4); Platelet Count 221 10^3/uL (150-450); Red Blood Count 2.44 10^6 /uL (3.70-4.87); Red Cell Distribution Width 14 % (10-15); White Blood Count 5.7 10^3/uL (3.5-10.8)
[2022-06-30 06:58] LABS: Calcium 8.6 mg/dL (8.6-10.3); Potassium 4.5 mmol/L (3.5-5.0); eGFR CKD-EPI 58.5 (>60)
[2022-06-30] MEDS ORDERED: Iodixanol (CONTRAST) 320 MG/ML 100 ML SDV IV ONE (08:53)
[2022-06-30] MEDS: buPROPion SR 200 mg TAB.SR PO SCH (09:46)
[2022-06-30] MEDS: Enoxaparin 40 MG/0.4 ML SYR SUBCUT SCH (09:46)
[2022-06-30] MEDS: Venlafaxine XR 75 mg PO SCH (09:48)
[2022-06-30] MEDS: oxyCODONE/Acetamin 5/325 mg TAB PO PRN (16:08)
[2022-06-30] MEDS: Senna TAB 8.6 mg TAB PO PRN (20:25)
[2022-07-01] MEDS: oxyCODONE/Acetamin 5/325 mg TAB PO PRN ×6 (00:57→23:22)
[2022-07-01] MEDS: Lidocaine PATCH 5% PATCH TRANSDERM PRN ×2 (03:57→20:25)
[2022-07-01] MEDS: Venlafaxine XR 75 mg PO SCH (08:43)
[2022-07-01] MEDS: buPROPion SR 200 mg TAB.SR PO SCH (08:43)
[2022-07-01] MEDS: Enoxaparin 40 MG/0.4 ML SYR SUBCUT SCH (08:43)
[2022-07-01] MEDS: Senna TAB 8.6 mg TAB PO PRN (10:02)
[2022-07-02] MEDS: oxyCODONE/Acetamin 5/325 mg TAB PO PRN ×5 (04:32→21:36)
[2022-07-02] MEDS: Enoxaparin 40 MG/0.4 ML SYR SUBCUT SCH (08:47)
[2022-07-02] MEDS: buPROPion SR 200 mg TAB.SR PO SCH (08:48)
[2022-07-02] MEDS: Venlafaxine XR 75 mg PO SCH (08:48)
[2022-07-02] MEDS: Senna TAB 8.6 mg TAB PO PRN (08:49)
[2022-07-02] MEDS: Lidocaine PATCH 5% PATCH TRANSDERM PRN (12:13)
[2022-07-03] MEDS: oxyCODONE/Acetamin 5/325 mg TAB PO PRN ×4 (01:25→14:48)
[2022-07-03] MEDS: Lidocaine PATCH 5% PATCH TRANSDERM PRN (04:47)
[2022-07-03 08:20] LABS: Hematocrit 27 % (35-47); Hemoglobin 9.3 g/dL (12.0-16.0)
[2022-07-03] MEDS: Enoxaparin 40 MG/0.4 ML SYR SUBCUT SCH (09:16)
[2022-07-03] MEDS: Venlafaxine XR 75 mg PO SCH (09:17)
[2022-07-03] MEDS: buPROPion SR 200 mg TAB.SR PO SCH (09:19)
[2022-07-03 15:57] VITALS: BP 121/74
== END 2022-07-03 16:49 | disposition home or self-care (01) | DRG 481 ==
LOC: ED 12:19 → SUATTDRO 15:05 → EDHOLD 15:05 → SSU 16:18
PROVIDERS: ADMIT Hospitalist; ATTEND Internal Medicine

== ENCOUNTER 2022-09-20 10:13 | Inpatient (IN) ==
[~2022-09-20 10:13] MED LIST: Buffered Lidocaine 1% SYRIN 1 ml INTRADERM ONE; Famotidine IV 10 MG/ML 2 ml VIAL (20 mg) IV ONE; Lactated Ringers 1000 ml BAG 1,000 ML IV SCH
[2022-09-20] MEDS ORDERED: ceFAZolin 2 GM in NS PREMIX 2 GM/100 ML BAG IVPB ONE (10:18)
[2022-09-20] MEDS ORDERED: Famotidine IV 10 MG/ML 2 ml VIAL (20 mg) ONE (10:20)
[2022-09-20] MEDS ORDERED: Buffered Lidocaine 1% SYRIN 1 ml ONE (11:17)
[2022-09-20] MEDS ORDERED: Dexamethasone IV 4 MG/ML VIAL 1 ml VIAL ONE (12:20)
[2022-09-20] MEDS ORDERED: Ondansetron 4 mg VIAL 2 MG/ML 2 ml VIAL ONE (12:20)
[2022-09-20] MEDS ORDERED: Propofol 10 MG/ML 20 ML BTL ONE (12:20)
[2022-09-20] MEDS ORDERED: Lidocaine 2% PF 5 ML VIAL ONE (12:20)
[2022-09-20] MEDS ORDERED: fentaNYL 100 mcg/2 ml 50 MCG/ML VIAL ONE (12:21)
[2022-09-20] MEDS ORDERED: Midazolam 2 mg/2 ml VIAL 1 mg/ml 2 ml VIAL (2 mg) ONE (12:21)
[2022-09-20] MEDS ORDERED: ROPIVACAINE 5 MG/ML 30 ML BTL (0.5%) ONE (13:01)
[2022-09-20] MEDS ORDERED: Rocuronium 50 mg VIAL 10 mg/ml 5 ml VIAL (50 mg) ONE (13:17)
[2022-09-20] MEDS ORDERED: Acetaminophen IV 1 GM/100ML 1,000 MG/100 ML BAG IV ONE (13:23)
[2022-09-20] MEDS ORDERED: Phenylephrine 40 mcg/mL 10mL (400mcg) SYRINGE ONE (14:18)
[2022-09-20] MEDS ORDERED: HYDROmorphone 0.5 MG/0.5 ML SYRINGE ONE (15:19)
[2022-09-20] MEDS ORDERED: Phenylephrine IV 10 MG/ML 1 ml VIAL ONE (16:17)
[2022-09-20] MEDS ORDERED: Magnesium Hydroxide LIQ 30 ML UDC PO PRN (17:01)
[2022-09-20] MEDS ORDERED: Ondansetron ODT 4 mg TAB 4 MG TAB PO PRN (17:01)
[2022-09-20] MEDS ORDERED: Lactulose 30 ml UDC PO PRN (17:01)
[2022-09-20] MEDS ORDERED: Ondansetron 4 mg VIAL 2 MG/ML 2 ml VIAL IV PRN (17:01)
[2022-09-20] MEDS ORDERED: Morphine 2 MG/ML SYRINGE IV PRN (17:01)
[2022-09-20] MEDS ORDERED: ceFAZolin 1 GM ADVAN 1 GM in NS 0.9% 50 ML 50 ML IVPB SCH (18:00)
[2022-09-20] MEDS: Lactated Ringers 1000 ml BAG 1,000 ML IV SCH ×2 (18:30→23:52)
[2022-09-20] MEDS: Magnesium Hydroxide LIQ 30 ML UDC PO SCH (21:22)
[2022-09-20] MEDS: ceFAZolin 1 GM ADVAN 1 GM in NS 0.9% 50 ML 50 ML IVPB SCH (21:22)
[2022-09-20] MEDS ORDERED: Lactated Ringers 1000 ml BAG IV.FLUID IV ONE (22:57)
[2022-09-21] MEDS: ceFAZolin 1 GM ADVAN 1 GM in NS 0.9% 50 ML 50 ML IVPB SCH ×2 (05:42→14:41)
[2022-09-21 06:00] LABS: Hematocrit 25 % (35-47); Hemoglobin 7.9 g/dL (12.0-16.0); Mean Platelet Volume 7.3 fL (7.4-10.4); Platelet Count 269 10^3/uL (150-450)
[2022-09-21 06:36] LABS: Calcium 8.3 mg/dL (8.6-10.3); Creatinine, Serum 1.67 mg/dL (0.51-0.95); Potassium 5.2 mmol/L (3.5-5.0)
[2022-09-21] MEDS: Magnesium Hydroxide LIQ 30 ML UDC PO SCH ×2 (08:22→21:07)
[2022-09-21] MEDS: Venlafaxine XR 75 mg PO SCH (08:23)
[2022-09-21] MEDS: buPROPion SR 200 mg TAB.SR PO SCH (08:24)
[2022-09-21] MEDS: Vitamin THERAPEUTIC TAB PO SCH (08:24)
[2022-09-21] MEDS ORDERED: SODIUM ZIRCONIUM CYCLOSILICATE 10 GM PACKET PO ONE (10:21)
[2022-09-21] MEDS ORDERED: Lactated Ringers 1000 ml BAG 250 ML IV ONE (10:59)
[2022-09-21] MEDS ORDERED: Lactated Ringers 1000 ml BAG 750 ML IV SCH (12:00)
[2022-09-22 06:10] LABS: ABS Eosinophils 0.2 10^3/ul (0-0.6); ABS Lymphocytes 0.9 10^3/ul (1.0-4.8); ABS Monocytes 0.5 10^3/ul (0-0.8); ABS Neutrophils 4.4 10^3/ul (1.5-7.7); Eosinophil % 3.2 %; Hematocrit 21 % (35-47); Hemoglobin 6.6 g/dL (12.0-16.0); Lymphocyte % 14.9 %; Mean Corpuscular HGB Conc 32 g/dL (31-36); Mean Corpuscular Hemoglobin 32 pg (27-31); Mean Corpuscular Volume 99 fL (80-97); Mean Platelet Volume 7.4 fL (7.4-10.4); Platelet Count 235 10^3/uL (150-450); Red Blood Count 2.07 10^6 /uL (3.70-4.87); Red Cell Distribution Width 16 % (10-15)
[2022-09-22 06:29] LABS: Calcium 7.9 mg/dL (8.6-10.3); Creatinine, Serum 1.18 mg/dL (0.51-0.95); Potassium 4.6 mmol/L (3.5-5.0)
[2022-09-22] MEDS: buPROPion SR 200 mg TAB.SR PO SCH (08:07)
[2022-09-22] MEDS: Vitamin THERAPEUTIC TAB PO SCH (08:08)
[2022-09-22] MEDS: Venlafaxine XR 75 mg PO SCH (08:08)
[2022-09-22] MEDS: Magnesium Hydroxide LIQ 30 ML UDC PO SCH ×2 (08:09→20:02)
[2022-09-22 15:18] LABS: Hematocrit 25 % (35-47); Hemoglobin 8.4 g/dL (12.0-16.0)
[2022-09-23 06:38] LABS: Hematocrit 24 % (35-47); Hemoglobin 7.9 g/dL (12.0-16.0); Mean Platelet Volume 7.6 fL (7.4-10.4); Platelet Count 242 10^3/uL (150-450)
[2022-09-23 07:00] LABS: Calcium 8.1 mg/dL (8.6-10.3); Creatinine, Serum 1.01 mg/dL (0.51-0.95); Potassium 4.5 mmol/L (3.5-5.0); eGFR CKD-EPI 60.3 (>60)
[2022-09-23] MEDS: buPROPion SR 200 mg TAB.SR PO SCH (08:04)
[2022-09-23] MEDS: Magnesium Hydroxide LIQ 30 ML UDC PO SCH ×2 (08:05→22:05)
[2022-09-23] MEDS: Venlafaxine XR 75 mg PO SCH (08:06)
[2022-09-23] MEDS: Vitamin THERAPEUTIC TAB PO SCH (08:07)
[2022-09-23] MEDS: Enoxaparin 30 MG/0.3 ML SYR SUBCUT SCH (12:22)
[2022-09-23 15:47] LABS: Hematocrit 24 % (35-47)
[2022-09-24 06:55] LABS: ABS Eosinophils 0.3 10^3/ul (0-0.6); ABS Monocytes 0.4 10^3/ul (0-0.8); ABS Neutrophils 4.3 10^3/ul (1.5-7.7); Eosinophil % 5.6 %; Hematocrit 24 % (35-47); Lymphocyte % 16.6 %; Mean Corpuscular HGB Conc 33 g/dL (31-36); Mean Corpuscular Hemoglobin 32 pg (27-31); Mean Corpuscular Volume 97 fL (80-97); Mean Platelet Volume 7.2 fL (7.4-10.4); Platelet Count 286 10^3/uL (150-450); Red Blood Count 2.48 10^6 /uL (3.70-4.87); Red Cell Distribution Width 15 % (10-15)
[2022-09-24] MEDS: Vitamin THERAPEUTIC TAB PO SCH (08:20)
[2022-09-24] MEDS: Venlafaxine XR 75 mg PO SCH (08:20)
[2022-09-24] MEDS: buPROPion SR 200 mg TAB.SR PO SCH (08:22)
[2022-09-24] MEDS: Magnesium Hydroxide LIQ 30 ML UDC PO SCH (08:22)
[2022-09-24 11:11] VITALS: BP 118/71
[2022-09-24] MEDS: Enoxaparin 30 MG/0.3 ML SYR SUBCUT SCH (11:47)
== END 2022-09-24 13:40 | disposition home or self-care (01) | DRG 470 ==
LOC: INTOOBSV 10:13 → AA 10:13 → SSU 18:22
PROVIDERS: ADMIT Orthopaedic Surgery Adult Reconstructive Orthopaedic Surgery; ATTEND Orthopaedic Surgery Adult Reconstructive Orthopaedic Surgery